=== PATIENT | male | born 1945 | race Caucasian/White ===

== ENCOUNTER → 2017-03-08 | Outpatient (CLI) | payer MEDICARE ==
--- NOTE | 2017-03-09 08:31 | REP ---
Clinical: Acute on chronic cough. Technique: PA and lateral. Comparison: 02/05/2015. Findings: Diffuse advanced chronic interstitial changes with fibrosis and scarring are again appreciated and similar to prior examination. Subtle superimposed perihilar and basilar atelectasis/infiltrate cannot be excluded. Visualized portions of the mediastinum and cardiac silhouette are relatively stable. No pneumothorax. No pleural effusion. Skeletal structures demonstrate osteopenia and degenerative changes along with old healed rib fractures. Impression: Chronic fibrosis and interstitial changes similar to prior examination. Subtle superimposed acute process cannot be excluded. If the patient remains symptomatic consider chest CT for further investigation. Signed by Garrett Miller MD 03/08/2017 06:09 P
== END ==
LOC: M WUC 17:48
PROVIDERS: ATTEND Family Medicine
DX: R05 Cough (principal)

== ENCOUNTER → 2017-03-09 | Outpatient (CLI) | payer MEDICARE ==
[2017-03-09 13:18] LABS: MEAN CORPUSCULAR HEMOGLOBIN 31.9 pg (27.0-33.0); MEAN CORPUSCULAR VOLUME 91.1 fl (80.0-96.0); RED CELL DISTRIBUTION WIDTH 13.1 % (11.5-14.5); WHITE BLOOD COUNT 12.8 K/mm3 (4.0-10.0)
[2017-03-09 13:22] LABS: INR 1.14
[2017-03-09 13:38] LABS: ALBUMIN 3.4 GM/DL (3.2-5.2); ALBUMIN/GLOBULIN RATIO 0.87 (1.00-1.93); ALKALINE PHOSPHATASE 92 U/L (45-117); ALT/SGPT 20 U/L (12-78); ANION GAP 9 MEQ/L (8-16); AST/SGOT 20 U/L (15-37); BILIRUBIN,TOTAL 0.7 MG/DL (0.2-1.0); BLOOD UREA NITROGEN 14 MG/DL (7-18); CALCIUM LEVEL 8.6 MG/DL (8.8-10.2); CARBON DIOXIDE LEVEL 25 MEQ/L (21-32); CHLORIDE LEVEL 105 MEQ/L (98-107); CHOLESTEROL LEVEL 139 MG/DL (<200); CREATININE FOR GFR 0.89 MG/DL (0.70-1.30); GLOMERULAR FILTRATION RATE > 60.0 (>42); GLUCOSE, FASTING 89 MG/DL (83-110); POTASSIUM SERUM 4.3 MEQ/L (3.5-5.1); SODIUM LEVEL 139 MEQ/L (136-145); TOTAL PROTEIN 7.3 GM/DL (6.4-8.2); TRIGLYCERIDES LEVEL 86 MG/DL (<150)
== END ==
LOC: M WUC 08:21
PROVIDERS: ATTEND Family Medicine
DX: I48.91 Unspecified atrial fibrillation (principal); I10 Essential (primary) hypertension

== ENCOUNTER → 2017-04-29 | Outpatient (CLI) | payer MEDICARE ==
[~2017-04-29] MED LIST: ALB2.5NEB INH; ALBU83IN INH; ALLO15TA PO; AMLO5TAB2 PO; BENZ100C5 PO; ELIQ5TAB PO; HYDR12.55 PO; HYDR25TA6; IPRASOL4 INH; IPRASOL4 NEB; ISOVUE-370 76% 100ML VIAL (Q9967) As Ordered ONE; METO1TAB87 PO; METO50TA7 PO; OMEP20CA3 PO; PRED50TA PO; PROAAER10 INH; ZOFR20TA PO; ZYLO300T4 PO; [UNRECOGNIZED DRUG - CODE] XX
--- NOTE | 2017-04-29 19:19 | REP ---
CT study of the chest with IV contrast: History: Shortness of breath and cough. CT contrast dose: 75 mL of Isovue [address] findings: Digital cow tender radiograph demonstrates pleural thickening along the right lateral chest wall and fullness in the right mediastinum and right hilus new from the chest x-ray of 03/08/2017. Chest CT images show multiple abnormalities. There is malignant-appearing adenopathy in the supraclavicular region of the right neck as well as in the right axilla. The largest node in the right axilla measures 2.5 cm in greatest diameter. A right supraclavicular lymph node is present measuring 2.8 cm, along with other smaller nodes. There is bulky mediastinal right hilar and left hilar lymphadenopathy. There is a confluent kay mass in the pretracheal region of the mediastinum measuring 5.6 x 5.6 cm. Subcarinal lymph node measures 4.2 x 6.8 cm. There are multiple pulmonary nodules bilaterally. There is an area of confluent opacity in the right lower lobe. Some of this may be postobstructive consolidation. Right lower lobe bronchial airways appear narrowed in this region. There are some interstitial lung changes as well as seen on previous radiographs. Numerous pulmonary nodules are seen. There is a enlarged lymph node in the epicardial fat to the left of midline 3.2 cm in greatest diameter. No adrenal lesion is seen. No hepatic lesion is observed. There are some mildly enlarged periesophageal lymph nodes above the diaphragmatic hiatus. There are one or two equivocal celiac axis lymph nodes in the upper abdomen. Bone window settings show no bony destructive lesion. 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 Histologic sampling is recommended. Ultrasound-guided right axillary lymph node needle biopsy should be for safe and feasible. Signed by Wallace Azevedo MD 04/29/2017 07:41 P
== END ==
LOC: M RAD 16:23
PROVIDERS: ATTEND Family Medicine
DX: R93.8 Abnormal findings on diagnostic imaging of other specified body structures (principal); R06.02 Shortness of breath; R05 Cough

== ENCOUNTER 2017-04-30 19:21 | Inpatient (IN) | payer MEDICARE ==
[~2017-04-30] VITALS: Ht 177.8 cm; Wt 95.3 kg
[2017-04-30] MEDS ORDERED: HYDR25TA6 (19:51)
[2017-04-30] MEDS ORDERED: PROAAER10 INH (19:51)
[2017-04-30] MEDS ORDERED: AMLO5TAB2 PO (19:51)
[2017-04-30] MEDS ORDERED: METO50TA7 PO (19:51)
[2017-04-30] MEDS ORDERED: BENZ100C5 PO (19:55)
[2017-04-30] MEDS ORDERED: ELIQ5TAB PO (19:55)
[2017-04-30] MEDS ORDERED: IPRATROPIUM 0.5MG/ALBUTEROL 2.5MG INH SOL UD 3ML (DUONEB)(J7620) NEB ONE (20:00)
[2017-04-30] MEDS ORDERED: METOPROLOL TART 50 MG TAB PO ONE (20:15)
[2017-04-30 20:31] LABS: BASO % 0.5 % (0.0-1.0); EOS # 0.2 K/mm3 (0.0-0.50); EOS % 1.8 % (0.0-3.0); LARGE UNSTAINED CELL # 0.5 K/mm3 (0.0-0.4); LARGE UNSTAINED CELL % 4.8 % (0.0-4.0); LYMPH # 1.6 K/mm3 (1.5-4.5); LYMPH % 11.3 % (24.0-44.0); MEAN CORPUSCULAR HEMOGLOBIN 30.1 pg (27.0-33.0); MEAN CORPUSCULAR HGB CONC 34.9 g/dl (32.0-36.5); MEAN CORPUSCULAR VOLUME 86.2 fl (80.0-96.0); MONO # 0.5 K/mm3 (0.0-0.8); MONO % 4.9 % (0.0-5.0); NEUTROPHILS # 7.7 K/mm3 (1.8-7.7); NEUTROPHILS % 76.7 % (36.0-66.0); PLATELET COUNT, AUTOMATED 280 k/mm3 (150-450); RED CELL DISTRIBUTION WIDTH 13.5 % (11.5-14.5)
[2017-04-30 20:53] LABS: ANION GAP 12 MEQ/L (8-16); BLOOD UREA NITROGEN 16 MG/DL (7-18); CALCIUM LEVEL 8.7 MG/DL (8.8-10.2); CARBON DIOXIDE LEVEL 26 MEQ/L (21-32); CHLORIDE LEVEL 104 MEQ/L (98-107); CREATININE FOR GFR 0.84 MG/DL (0.70-1.30); GLOMERULAR FILTRATION RATE > 60.0 (>42); GLUCOSE, FASTING 88 MG/DL (83-110); POTASSIUM SERUM 3.4 MEQ/L (3.5-5.1); SODIUM LEVEL 142 MEQ/L (136-145)
[2017-04-30] MEDS ORDERED: HYDR12.55 PO (20:56)
[2017-04-30] MEDS ORDERED: POTASSIUM CHLORIDE 10 MEQ SR TABLET PO ONE (21:30)
[2017-04-30] MEDS ORDERED: cefTRIAXone SOD 1 GM in D5W MINI-BAG PLUS 50 ML IV ONE (21:30)
[2017-04-30] MEDS ORDERED: AZITHROMYCIN INJ 500 MG, VIAL MATE ADAPTER 1 EACH in D5W 250 ML IV ONE (21:30)
[2017-04-30 23:00] VITALS: BP 160/99
[2017-04-30 23:02] LABS: ALBUMIN 2.5 GM/DL (3.2-5.2); ALBUMIN/GLOBULIN RATIO 0.61 (1.00-1.93); BILIRUBIN,DIRECT 0.2 MG/DL (0.0-0.2); BILIRUBIN,TOTAL 0.5 MG/DL (0.2-1.0); TOTAL PROTEIN 6.6 GM/DL (6.4-8.2)
[2017-04-30 23:09] LABS: INR 1.26
[2017-04-30] MEDS ORDERED: ACETAMINOPHEN TAB 650MG DOSE (2X325MG) PO PRN (23:15)
[2017-04-30] MEDS ORDERED: IPRATROPIUM 0.5MG/ALBUTEROL 2.5MG INH SOL UD 3ML (DUONEB)(J7620) NEB PRN (23:15)
[2017-04-30] MEDS ORDERED: NS 500 ML IV ONE (23:30)
[2017-04-30] MEDS: BENZONATATE 100 MG CAP PO SCH (23:59)
[2017-05-01 00:18] LABS: ABG HCO3 22.2 MEQ/L (22.0-26.0); ABG PARTIAL PRESSURE CO2 33.2 mmHg (35.0-45.0); ABG STANDARD HCO3 23.5 MEQ/L (22.0-26.0); ABG TOTAL CO2 23.3 MEQ/L (23.0-31.0); ABG pH (ARTERIAL) 7.444 UNITS (7.350-7.450)
[2017-05-01] MEDS: D5W/0.45% SODIUM CHLORIDE 1,000 ML IV SCH ×2 (00:25→18:03)
[2017-05-01] MEDS: ONDANSETRON 4MG/2ML VIAL (J2405) IV PRN ×2 (01:49→18:03)
[2017-05-01] MEDS ORDERED: ISOVUE-370 76% 100ML VIAL (Q9967) As Ordered ONE (02:38)
[2017-05-01] MEDS ORDERED: GASTROGRAFIN SOLUTION 30ML PO ONE (04:30)
[2017-05-01] MEDS ORDERED: GASTROGRAFIN SOLUTION 30ML (Q9963) PO ONE (05:00)
[2017-05-01 06:00] VITALS: BP 137/82
[2017-05-01 06:23] LABS: BASO # 0.1 K/mm3 (0.0-0.2); BASO % 0.6 % (0.0-1.0); EOS # 0.2 K/mm3 (0.0-0.50); EOS % 2.6 % (0.0-3.0); LARGE UNSTAINED CELL # 0.5 K/mm3 (0.0-0.4); LARGE UNSTAINED CELL % 4.9 % (0.0-4.0); LYMPH # 1.7 K/mm3 (1.5-4.5); LYMPH % 13.9 % (24.0-44.0); MEAN CORPUSCULAR HEMOGLOBIN 30.2 pg (27.0-33.0); MEAN CORPUSCULAR HGB CONC 34.6 g/dl (32.0-36.5); MEAN CORPUSCULAR VOLUME 87.4 fl (80.0-96.0); MONO # 0.6 K/mm3 (0.0-0.8); MONO % 6.5 % (0.0-5.0); NEUTROPHILS # 6.6 K/mm3 (1.8-7.7); NEUTROPHILS % 71.5 % (36.0-66.0); PLATELET COUNT, AUTOMATED 293 k/mm3 (150-450); RED CELL DISTRIBUTION WIDTH 13.6 % (11.5-14.5); WHITE BLOOD COUNT 9.3 K/mm3 (4.0-10.0)
[2017-05-01 06:30] LABS: ANION GAP 10 MEQ/L (8-16); BLOOD UREA NITROGEN 17 MG/DL (7-18); CALCIUM LEVEL 8.7 MG/DL (8.8-10.2); CARBON DIOXIDE LEVEL 27 MEQ/L (21-32); CHLORIDE LEVEL 103 MEQ/L (98-107); CREATININE FOR GFR 0.93 MG/DL (0.70-1.30); GLOMERULAR FILTRATION RATE > 60.0 (>42); GLUCOSE, FASTING 90 MG/DL (83-110); POTASSIUM SERUM 3.9 MEQ/L (3.5-5.1); SODIUM LEVEL 140 MEQ/L (136-145)
--- NOTE | 2017-05-01 06:59 | HPE ---
DATE OF ADMISSION: 04/30/2017 TIME: Patient was seen at 2200 PRIMARY CARE PROVIDER: Dr. Mena. BALLPOINT PEN CARTRIDGE TESTER: Dr. Hoang. CHIEF COMPLAINT: Shortness of breath and cough for several months. HISTORY OF PRESENT ILLNESS: 72-year-old male with a past medical history of tubulovillous adenoma in 2013 status post two colonoscopies, recent atrial fibrillation on Eliquis, hypertension, and recently placed on albuterol, presented with cough for at least 2 months and also shortness of breath for around 3 months. Patient has seen Dr. Mena about a month ago and was referred to Dr. Hoang with cardiology and it was found that he had a new onset of atrial fibrillation and was started on Eliquis 2 weeks ago. In addition, patient stated that he has been short of breath for the entire summer and for the 2 months he had a severe cough, produced sputum which was light yellow and he also currently has trouble walking to the car without getting shortness of breath. He is also sleeping with three pillows at night now on the sideway. However, he does not have any swellings in the lower extremities. CT scan was ordered by primary just recently and he had a CT done yesterday at around [address] chest showed compatible with extensive metastatic malignancy to the lungs, mediastinum, multiple intrathoracic and extrathoracic lymph node changes. Histological sampling is recommended. Ultrasound-guided right axilla lymph node needle biopsy should be safe and feasible. Otherwise, patient himself is very hard of hearing and according to patient's partner and friend in the room, stated that patient has a memory problem as well. However, patient himself denies any fever or chills. Denies any chest pain, any abdominal pains, nausea, vomiting, diarrhea, constipation. Denies any blood in the urine or stool. Denies any recent traveling or sick contact. ALLERGIES: Patient is allergic to ORANGE JUICE. HOME MEDICATIONS: Including: - amlodipine 5 mg by mouth daily - Eliquis 5 mg one tablet by mouth twice a day - benzonatate 100 mg one tablet by mouth three times a day - hydrochlorothiazide 12.5 mg one tablet by mouth daily - metoprolol tartrate 50 mg one tablet by mouth twice a day - albuterol sulfate two-puff inhalation every 4 hours as needed PAST MEDICAL HISTORY: Includin. Tubulovillous adenoma polyp in 2013 when he had a colonoscopy with Dr. Roth. 2. Hypertension. 3. Recently diagnosed atrial fibrillation on Eliquis. 4. Chronic pain. 5. Obesity. SURGICAL HISTORY: Includin. Repair of the right elbow. 2. Cataract removal. SOCIAL HISTORY: Patient quit smoking 30 years ago. Used to smoke two packs per day for 20 years. Denies any drinking or recreational drug use. Patient currently lives by himself; however, recently his girlfriend comes to visit him regularly due to he has not been feeling well. Patient also has children, who live close by. FAMILY HISTORY: Patient's father from cancer. Mother had cirrhosis of liver, also had hypertension. REVIEW OF SYSTEMS: GENERAL: Patient admits to 20-pound weight loss in the past 1 month. Stated that he does not want to eat. Denies any fever or chills; however, admits to night sweats, which were severe. Also denies any recent traveling or sick contact. HEENT: Denies any changes with vision, smell, hearing or taste. CARDIOVASCULAR: Admits to shortness of breath and atrial fibrillation, which seems to be a recent event. PULMONARY: Admits to shortness of breath for the entire summer and has been very weak also, was unable to walk far due to the shortness of breath and has been coughing, produces clear yellow sputum. GASTROINTESTINAL (GI): Denies any abdominal pains, nausea, vomiting, diarrhea, constipation, any blood in the stool. GENITOURINARY (): Denies any dysuria, burning on urination, any blood in the urine. MUSCULOSKELETAL: Denies any pain anywhere, any joint ache. HEMATOLOGY/ONCOLOGY: Patient admits to weight loss, 20 pounds. Admits to night sweats. Admits to poor oral intake. Admits to feeling weak and tired. However, denies any bleeding in the stool, denies any bleeding in the urine or any ease of bruising. ENDOCRINE: Denies any heat or cold intolerance. NEUROLOGICAL: Denies any weakness on any one side of his body. Denies any change of sensations. PSYCHIATRIC: Denies any anxiety, depression. PHYSICAL EXAMINATION: VITAL SIGNS: Temperature 97.5, pulse 123, respirations 24, blood pressure 158/92, oxygen was saturating at 87% on room air and while examined in the room patient was saturating at 92% on 2 liters of nasal cannula. GENERAL: Patient is a pleasant, however, very hard of hearing elderly male who was alert, awake, and oriented times three. Does not appear to be in distress lying comfortably in bed with head elevated at 30 degrees. HEENT: Normocephalic, atraumatic. Extraocular motor intact. Mucosa moist. NECK: Supple. Patient does have a right-sided supraclavicular node, which is at least 2 cm. CARDIOVASCULAR: Irregularly irregular, 2/6 systolic heart murmur. LUNGS: There was focal wheezing, especially on the left upper lung field anteriorly and there was slight wheezing in bilateral lung forbes posteriorly as well. ABDOMEN: Positive bowel sounds, soft, nontender, nondistended. No peritoneal signs. No ecchymosis. Patient is obese, however. No palpable masses. EXTREMITIES: No edema, clubbing, or cyanosis. SKIN: Warm and dry. NEUROLOGIC: Cranial nerves II-XII intact. No focal neurological deficit. LABORATORIES: WBC 10, hemoglobin 14.6, hematocrit 41.9 with a platelet count of 280, and MCV 86.2. Sodium 142, potassium was low 3.4, chloride 104, bicarbonate 28, anion gap of 12, BUN 16, creatinine 0.84, GFR greater than 60, fasting glucose 88, lactic acid is pending, calcium 8.7, magnesium 2, total bilirubin 0.5, direct bilirubin 0.2, AST 40, ALT 28, alkaline phosphatase 90, CK 54, CK-MB 1.3, troponin less than 0.02, BNP 63.1, total protein 6.6, albumin 2.5. PT 16.1, INR 1.26, PTT 32. Blood culture times two are pending. Patient had a portable chest x-ray today done in the emergency department shows bilateral lower lobe patchiness. The patient did have a CT of the chest done yesterday. As mentioned before, it shows compatible with extensive metastatic malignancy to the lungs, mediastinum, multiple intrathoracic and extrathoracic lymph node changes. Radiology recommended histological sampling, ultrasound-guided right axilla lymph node needle biopsy should be safe and feasible. ASSESSMENT AND PLAN: 72-year-old male with a past medical history of recently diagnosed atrial fibrillation, hypertension, obesity, and history of tubulovillous adenoma polyp from colonoscopy in 2013, presented with: 1. Shortness of breath. Likely related to malignancy, possibly with colonic primary metastasized to the lungs, shown on the CT done on 04/29/2017. Radiology recommended ultrasound-guided right axilla lymph node needle biopsy. Patient also has a palpable supraclavicular lymph node on the right side as well. Will likely discuss with pulmonary in the morning regarding best diagnostic etiology, possibly consult oncology inpatient versus outpatient. Will continue supplemental oxygen and patient's EKG shows atrial fibrillation, no ST-T wave abnormality. Cardiac marker has been negative. Therefore, shortness of breath most likely due to malignancy in the lung. 2. Atrial fibrillation on Eliquis. On examination, patient was still in atrial fibrillation. Will actually hold Eliquis for now due to possible procedure and will keep patient nothing by mouth overnight as well. 3. Hypertension. Continue patient on Norvasc 5 mg daily, hydrochlorothiazide 12.5 daily, as well as metoprolol 50 mg by mouth daily with hold parameters. Will hold if systolic blood pressure is less than 120 or if heart rate is less than 65. 4. Coughing. Likely secondary to lung masses. Continue Tessalon Perles. Will start patient on incentive spirometry as well to prevent pneumonia. Patient did receive some antibiotic in the emergency room with azithromycin and Rocephin. However, will not continue due to no actual fever. The CT did not show any possible infection. Blood culture, however, has been ordered. Will followup. 5. Deep venous thrombosis (DVT) prophylaxis with sequential compression devices (SCDs) and thromboembolism deterrent stockings (TEDS) only due to possible procedure. 6. Fluid, electrolyte and diet. Will place the patient on 2-gram salt diet for now and will keep patient nothing by mouth in the morning for possible procedure. DISPOSITION: Patient has all of these symptoms and also CT finding, as well as supraclavicular lymph node on the right side, as well as the lymph node on the axilla region on the right side, likely needs a needle biopsy; however, will discuss with pulmonary in the morning regarding best diagnostic modality and possibly needs oncology consult inpatient or outpatient. Will followup with cultures. Has not discussed code status yet due to this is a new event for the patient. Patient will be seen by attending doctor, Dr. Martinez in the morning. Patient has been discussed with attending doctor, Dr. Mccartney. My preceptor for this patient encounter was Dr. Redd Mccartney. The preceptor was physically present in the building during the encounter and was fully available as needed. All aspects of the patient interview, examination, medical decision making process, and medical care plan development were reviewed and approved by the preceptor. The preceptor is aware and concurs with the plan as stated in the body of this note and will attest to such by his/her co-signature.
--- NOTE | 2017-05-01 07:00 | REPUSA ---
CLINICAL HISTORY: Abdominal pain. TECHNIQUE: Multiple axial, sagittal and coronal CT images were obtained through the abdomen and pelvi s after administration of oral and intravenous contrast material. COMMENTS: Small sliding hiatal hernia. Interposition of the colon between the liver and the right hemidiaphragm. 4.1x3.7 cm heterogeneous soft tissue nodule in the right upper lobe. 1.6 cm left renal simple cyst. Uncomplicated colonic diverticulosis. The liver is of uniform attenuation without mass or defect. There is no intra or extrahepatic biliary ductal dilatation. The spleen is normal. The gallbladder is within normal limits. The pancreas is of normal contour and attenuation characteristics. There is no evidence of adrenal mass. Both kidneys demonstrate prompt and equal nephrograms. The kidneys are normal in size, shape and conf iguration. There is no evidence of renal or ureteral mass. No renal or ureteral calculi are identifie d. There is no hydroureter or hydronephrosis. No evidence for appendicitis. There is no bowel wall thickening. No evidence for small or large da l obstruction. There is no evidence of abdominal ascites or lymphadenopathy. There is no evidence of intrinsic or extrinsic bladder mass. There is no pelvic ascites or lymphadeno silvana. Enlarged right hilar and mediastinal lymph nodes. The largest measures 4.2 cm. Heterogeneous nodular right perihilar soft tissue thickening suggestive of a neoplastic pathology. Associated loss of volume in the right lung more prominent in the right lower lobe. Multiple bilateral basilar pulmonary nodules with the largest measuring 2.2 cm. Mild mediastinal shift to the left side. Moderate right pleural effusion. Passive atelectatic airspace disease of the right lower lobe. Enlarged right paracardiac lymph nodes the largest measuring 1.6 cm. The bony structures are free of lytic or blastic lesions. Multilevel degenerative changes are seen in volving the thoracolumbar spine. Scattered calcifications are seen involving the aorta and major bran ches compatible with atherosclerosis. IMPRESSION: Bilateral basilar pulmonary nodules. Right pleural effusion. Right hilar mass. Right hilar/mediastinal lymphadenopathy. Loss of volume in the right lung with mild mediastinal shift to the left side. Metastatic soft tissue mass in the right upper quadrant. Thank you for your kind referral of this patient.
--- NOTE | 2017-05-01 08:54 | REP ---
Chest x-ray: Two views. History: Dyspnea and cough. Comparison chest x-ray 03/08/2017. There is an chest CT study is from 04/29/2017. Findings: There is marked mediastinal widening on the right and the left consistent with bulky mediastinal lymphadenopathy. There are multiple nodular opacities in the lung forbes and diffuse interstitial lung disease is seen. Fissural thickening is seen on the lateral radiograph. There is blunting of what appears to be the right posterior pleural angle. Heart appears to be enlarged. Impression: Extensive mediastinal and hilar adenopathy pattern. Right pleural effusion and multiple bilateral pulmonary nodules. Diffuse interstitial lung disease. Signed by Wallace Azevedo MD 05/01/2017 09:49 A
[2017-05-01] MEDS: SENOKOT S TAB PO SCH ×3 (09:00→20:47)
[2017-05-01] MEDS: amLODIPine 5 MG TAB PO SCH (09:00)
[2017-05-01] MEDS ORDERED: APIXABAN 5 MG TAB (ELIQUIS) PO SCH (09:00)
[2017-05-01] MEDS: hydroCHLOROthiazide 12.5 MG CAPSULE PO SCH (09:12)
[2017-05-01] MEDS: BENZONATATE 100 MG CAP PO SCH ×3 (09:12→20:54)
[2017-05-01] MEDS: METOPROLOL TART 50 MG TAB PO SCH ×2 (09:12→20:47)
[2017-05-01 13:06] VITALS: BP 137/72
--- NOTE | 2017-05-01 16:05 | IPNPDOC ---
Text Note Date of Service The patient was seen on 05/01/17. NOTE Subjective: Patient is a 72 year old male with a PMHx of Atrial fibrillation (Dx 2 weeks prior, started on Eliquis), Tubulovillous adenoma (s/p resection, found on Colonoscopy 2013), HTN, Chronic pain and Obesity who presented to the ER with shortness of breath and cough progressively worsening over several months. Patient had imaging as outpatient that revealed diffuse metastatic lesions in both lung forbes. Upon arrival in the ER he was found to have hypoxia and was admitted for further workup. Patient was seen and examined at the bedside. Objective: Vitals (See below) General: Lying in bed, no acute distress, comfortable, AAOx3 HEENT: NC, AT CVS: IrIr, +S1S2, + Systolic murmur Lungs: Poor inspiratory effort; no appreciable crackles / wheezing Abdomen: Soft, ND, NT Extremities: - Edema, - Calf tenderness Assessment and plan: Dyspnea - likely 2/2 extensive metastatic lesions at bilateral lung forbes - primary lesion unclear - Presented to the ER with SOB and cough - Physical with poor inspiratory effort; enlarged LN at right supraclavicular / right axilla - Requiring supplemental oxygen via nasal cannula - No leukocytosis noted - Blood cultures 04/30: Pending - CT Chest w/ IV Contrast 04/29: extensive metastatic malignancy to the lungs, mediastinum, and multiple intrathoracic and extrathoracic lymph node chains. - s/p Antibiotics in ER (Azithromycin and Ceftriaxone) - c/w Symptomatic control with Tessalon Perles and Duoneb PRN - Plan for IR guided LN biopsy should be for safe and feasible - Will make NPO post-midnight Lactic acidosis - likely 2/2 SOB - No evidence of infection - Hemodynamically stable Atrial fibrillation - EKG with atrial fibrillation - c/w rate control with metoprolol tartrate 50 BID (from outpatient) - Eliquis on hold Tubulovillous adenoma - s/p resection, found on Colonoscopy 2013 - Reported to have Colonoscopy repeated in 2014 - as per patient has been normal HTN - c/w HCTZ, Amlodipine and Metoprolol with holding parameters Chronic pain - c/w Tylenol PRN Obesity DVT prophylaxis - c/w SCDs VS,Fishbone, I+O VS, Fishbone, I+O Laboratory Tests 04/30/17 20:24 Red Blood Count 4.86, Mean Corpuscular Volume 86.2, Mean Corpuscular Hemoglobin 30.1, Mean Corpuscular Hemoglobin Concent 34.9, Red Cell Distribution Width 13.5 , Neutrophils (%) (Auto) 76.7 H, Lymphocytes (%) (Auto) 11.3 L, Monocytes (%) ( Auto) 4.9, Eosinophils (%) (Auto) 1.8, Basophils (%) (Auto) 0.5, Neutrophils # ( Auto) 7.7, Lymphocytes # (Auto) 1.6, Monocytes # (Auto) 0.5, Eosinophils # (Auto ) 0.2, Basophils # (Auto) 0.0, Calcium Level 8.7 L, Total Creatine Kinase 54 05/01/17 05:30 Red Blood Count 4.67, Mean Corpuscular Volume 87.4, Mean Corpuscular Hemoglobin 30.2, Mean Corpuscular Hemoglobin Concent 34.6, Red Cell Distribution Width 13.6 , Neutrophils (%) (Auto) 71.5 H, Lymphocytes (%) (Auto) 13.9 L, Monocytes (%) ( Auto) 6.5 H, Eosinophils (%) (Auto) 2.6, Basophils (%) (Auto) 0.6, Neutrophils # (Auto) 6.6, Lymphocytes # (Auto) 1.7, Monocytes # (Auto) 0.6, Eosinophils # ( Auto) 0.2, Basophils # (Auto) 0.1, Calcium Level 8.7 L Vital Signs Date Time Temp Pulse Resp B/P (MAP) Pulse Ox O2 Delivery O2 Flow Rate FiO2 05/01/17 13:06 98.3 85 22 137/72 (93) 95 Nasal Cannula 3.0 I&O- Last 24 Hours up to 6 AM 05/01/17 06:00 Intake Total 0 ml Output Total 100 ml Balance -100 ml GUILLERMINA TAPIA MD May 01, 2017 16:04
[2017-05-01] MEDS ORDERED: DEXTROMETHORPHAN 60MG/10ML SUSP 90ML BTL(DELSYM) PO PRN (18:15)
[2017-05-01] MEDS ORDERED: guaiFENesin DM LIQ 10ML UD PO PRN (18:45)
[2017-05-01] MEDS ORDERED: traZODone 25MG PER 1/2 TABLET PO ONE (21:00)
--- NOTE | 2017-05-01 21:33 | ECGEPIP ---
Stationary ECG Study [facility] - ED Test Date: 2017-04-30 Pat Name: FRITZ MARTINEZ Department: Room: [place] [address] Gender: M Client Relationship Executive: MendezB: 1945 Requested By: TRUPTI Perez Order Number: [id number] Reading MD: Antonieta Santo Measurements Intervals [place] Rate: 104 P: RI: 0 QRS: 32 QRSD: 85 T: 24 QT: 328 QTc: 432 Interpretive Statements ATRIAL FIBRILLATION WITH RAPID VENTRICULAR RESPONSE MINIMAL ST DEPRESSION ABNORMAL RHYTHM ECG NO PRIOR FOR COMPARISON Electronically Signed On 05-01-2017 21:32:40 EDT by Antonieta Santo
[2017-05-01 22:00] VITALS: BP 130/85
[2017-05-02 05:30] VITALS: BP 143/87
[2017-05-02 06:29] LABS: BASO # 0.1 K/mm3 (0.0-0.2); BASO % 0.6 % (0.0-1.0); EOS # 0.3 K/mm3 (0.0-0.50); EOS % 3.4 % (0.0-3.0); LARGE UNSTAINED CELL # 0.6 K/mm3 (0.0-0.4); LARGE UNSTAINED CELL % 5.6 % (0.0-4.0); LYMPH # 1.8 K/mm3 (1.5-4.5); LYMPH % 12.6 % (24.0-44.0); MEAN CORPUSCULAR HEMOGLOBIN 30.2 pg (27.0-33.0); MEAN CORPUSCULAR HGB CONC 34.3 g/dl (32.0-36.5); MEAN CORPUSCULAR VOLUME 88.1 fl (80.0-96.0); MONO # 0.5 K/mm3 (0.0-0.8); MONO % 5.4 % (0.0-5.0); NEUTROPHILS # 7.3 K/mm3 (1.8-7.7); NEUTROPHILS % 72.4 % (36.0-66.0); PLATELET COUNT, AUTOMATED 272 k/mm3 (150-450); RED CELL DISTRIBUTION WIDTH 13.7 % (11.5-14.5)
[2017-05-02 06:35] LABS: INR 1.12
[2017-05-02 06:50] LABS: ANION GAP 9 MEQ/L (8-16); BLOOD UREA NITROGEN 12 MG/DL (7-18); CALCIUM LEVEL 8.8 MG/DL (8.8-10.2); CARBON DIOXIDE LEVEL 28 MEQ/L (21-32); CHLORIDE LEVEL 104 MEQ/L (98-107); GLOMERULAR FILTRATION RATE > 60.0 (>42); GLUCOSE, FASTING 86 MG/DL (83-110); POTASSIUM SERUM 3.7 MEQ/L (3.5-5.1); SODIUM LEVEL 141 MEQ/L (136-145)
[2017-05-02] MEDS: hydroCHLOROthiazide 12.5 MG CAPSULE PO SCH (09:51)
[2017-05-02] MEDS: METOPROLOL TART 50 MG TAB PO SCH (09:51)
[2017-05-02 09:52] VITALS: BP 143/87
[2017-05-02] MEDS: SENOKOT S TAB PO SCH (09:52)
[2017-05-02] MEDS: amLODIPine 5 MG TAB PO SCH (09:52)
[2017-05-02] MEDS: BENZONATATE 100 MG CAP PO SCH ×2 (09:52→15:40)
--- NOTE | 2017-05-02 13:33 | DS.PDOC ---
Discharge Summary General Date of Admission Apr 30, 2017 at 21:25 Date of Discharge 05/02/2017 Discharge Summary PROCEDURES PERFORMED DURING STAY: IR guided LN biopsy 05/02/2017 ADMITTING DIAGNOSES / DISCHARGE DIAGNOSES: Dyspnea - likely 2/2 extensive metastatic lesions at bilateral lung forbes - primary lesion unclear; likely lung primary Lactic acidosis - likely 2/2 SOB COMPLICATIONS/CHIEF COMPLAINT: Lung Mass. HISTORY OF PRESENT ILLNESS: Patient is a 72 year old male with a PMHx of Atrial fibrillation (Dx 2 weeks prior, started on Eliquis), Tubulovillous adenoma (s/p resection, found on Colonoscopy 2013), HTN, Chronic pain and Obesity who presented to the ER with shortness of breath and cough progressively worsening over several months. Patient had imaging as outpatient that revealed diffuse metastatic lesions in both lung forbes. Upon arrival in the ER he was found to have hypoxia and was admitted for further workup. Patient was seen and examined at the bedside. He reports that is breathing is a little better with oxygen. He notes that his cough has had a slight improvement , but continues to be present. Denies any sputum production, chills or fevers. HOSPITAL COURSE: Dyspnea - likely 2/2 extensive metastatic lesions at bilateral lung forbes - primary lesion unclear; likely lung primary - Presented to the ER with SOB and cough - Physical with poor inspiratory effort; enlarged LN at right supraclavicular / right axilla - Requiring supplemental oxygen via nasal cannula - No leukocytosis noted - Blood cultures 04/30: Pending - CT Chest w/ IV Contrast 04/29: extensive metastatic malignancy to the lungs, mediastinum, and multiple intrathoracic and extrathoracic lymph node chains - CT abdomen / pelvis 05/01: bilateral basilar pulmonary nodules, R pleural effusion, R hilar mass, right hilar / mediastinal lymphadenomata, metastatic soft tissue mass in RUQ - s/p Antibiotics in ER (Azithromycin and Ceftriaxone) - c/w Symptomatic control with Tessalon Perles and Duoneb PRN - Will go for IR guided biopsy of LN for tissue diagnosis - Case discussed with Oncology (Dr. Frias); plan for outpatient follow up to go over results of pathology and additional workup Lactic acidosis - likely 2/2 SOB - No evidence of infection - Hemodynamically stable Atrial fibrillation - EKG with atrial fibrillation - c/w rate control with metoprolol tartrate 50 BID (from outpatient) - Eliquis on hold; will restart Eliquis after procedure Tubulovillous adenoma - s/p resection, found on Colonoscopy 2013 - Reported to have Colonoscopy repeated in 2014 - as per patient has been normal HTN - c/w HCTZ, Amlodipine and Metoprolol with holding parameters Chronic pain - c/w Tylenol PRN Obesity DVT prophylaxis - c/w SCDs DISCHARGE MEDICATIONS: Please see below. ALLERGIES: Please see below. LABORATORY DATA: Please see below. DISCHARGE PLAN: Patient has been advised to follow up with primary care provider and oncology within 7 days. He has been advised to call to confirm / schedule appointment. Case has been discussed with Oncology and referral to oncology has been given. Advised patient to remain compliant with treatment plan and medications and return to the ER if they experience any problems. DISPOSITION: . DISCHARGE INSTRUCTIONS: Patient has been advised to follow up with primary care provider and oncology within 7 days. He has been advised to call to confirm / schedule appointment. Case has been discussed with Oncology and referral to oncology has been given. Advised patient to remain compliant with treatment plan and medications and return to the ER if they experience any problems. ITEMS TO FOLLOWUP ON ON OUTPATIENT: Pathology results with Oncology DISCHARGE CONDITION: Stable TIME SPENT ON DISCHARGE: Greater than 35 minutes Vital Signs/I&Os Vital Signs Date Time Temp Pulse Resp B/P (MAP) Pulse Ox O2 Delivery O2 Flow Rate FiO2 05/02/17 09:52 112 143/87 05/02/17 09:00 Nasal Cannula 3.0 05/02/17 05:30 97.9 30 93 I&O- Last 24 Hours up to 6 AM 05/02/17 06:00 Intake Total 1200 ml Output Total 560 ml Balance 640 ml Laboratory Data Labs 24H Laboratory Tests 2 05/02/17 05:55: White Blood Count 10.0, Red Blood Count 4.65, Hemoglobin 14.0, Hematocrit 41.0L , Mean Corpuscular Volume 88.1, Mean Corpuscular Hemoglobin 30.2, Mean Corpuscular Hemoglobin Concent 34.3, Red Cell Distribution Width 13.7, Platelet Count 272, Neutrophils (%) (Auto) 72.4H, Lymphocytes (%) (Auto) 12.6L, Monocytes (%) (Auto) 5.4H, Eosinophils (%) (Auto) 3.4H, Basophils (%) (Auto) 0.6 , Neutrophils # (Auto) 7.3, Lymphocytes # (Auto) 1.8, Monocytes # (Auto) 0.5, Eosinophils # (Auto) 0.3, Basophils # (Auto) 0.1, Large Unclassified Cells % 5.6H, Large Unclassified Cells # 0.6H, Prothrombin Time 14.6H, Prothromb Time International Ratio 1.12, Activated Partial Thromboplast Time 29.6, Anion Gap 9 , Glomerular Filtration Rate > 60.0, Blood Urea Nitrogen 12, Creatinine 0.80, Sodium Level 141, Potassium Level 3.7, Chloride Level 104, Carbon Dioxide Level 28, Calcium Level 8.8 CBC/BMP Laboratory Tests 05/02/17 05:55 Red Blood Count 4.65, Mean Corpuscular Volume 88.1, Mean Corpuscular Hemoglobin 30.2, Mean Corpuscular Hemoglobin Concent 34.3, Red Cell Distribution Width 13.7 , Neutrophils (%) (Auto) 72.4 H, Lymphocytes (%) (Auto) 12.6 L, Monocytes (%) ( Auto) 5.4 H, Eosinophils (%) (Auto) 3.4 H, Basophils (%) (Auto) 0.6, Neutrophils # (Auto) 7.3, Lymphocytes # (Auto) 1.8, Monocytes # (Auto) 0.5, Eosinophils # (Auto) 0.3, Basophils # (Auto) 0.1, Calcium Level 8.8 Microbiology Microbiology 04/30/17 Blood Culture - Preliminary, Resulted No growth after 24 hours . All specim... 04/30/17 Blood Culture - Preliminary, Resulted No growth after 24 hours . All specim... 05/01/17 MRSA Screen - Final, Complete 05/01/17 Influenza Virus Type A Antigen - Final, Complete 05/01/17 Influenza Virus Type B Antigen - Final, Complete 05/01/17 Gram Stain - Final, Resulted 05/01/17 Sputum Culture, Resulted Pending Discharge Medications Scheduled Amlodipine Besylate (Amlodipine Besylate) 5 Mg Tab, 5 MG PO DAILY, (Reported) Apixaban Base (Eliquis) 5 Mg Tab, 5 MG PO BID, (Reported) Benzonatate (Benzonatate) 100 Mg Cap, 100 MG PO TID, (Reported) Hydrochlorothiazide (Hydrochlorothiazide) 12.5 Mg Tab, 12.5 MG PO DAILY, ( Reported) Metoprolol Tartrate (Metoprolol Tartrate) 50 Mg Tab, 50 MG PO BID, (Reported) Scheduled PRN Albuterol Sulfate (Proair Hfa) 108 Mcg/Act Aer, 2 PUFF INH Q4H PRN for SHORTNESS OF BREATH, (Reported) Allergies Coded Allergies: [place] (Unverified Allergy, Unknown, 05/01/17) ORANGE DYE [place] Oil (Unverified Allergy, Unknown, 05/01/17) GUILLERMINA TAPIA MD May 02, 2017 13:33
[2017-05-02] MEDS ORDERED: ELIQ5TAB PO (13:35)
[2017-05-02 14:00] VITALS: BP 138/76
[2017-05-02] MEDS ORDERED: LIDOCAINE 1% MDV 20ML VIAL As Ordered ONE (16:31)
[2017-05-02] MEDS ORDERED: PROAAER10 INH (18:07)
--- NOTE | 2017-05-02 20:57 | REP ---
ULTRASOUND GUIDED RIGHT AXILLARY LYMPH NODE FINE NEEDLE ASPIRATION: The procedure was performed by NICOLE Velásquez under the direct supervision of Dr. Mac. The procedure along with its risks, benefits, and complications were discussed with the patient prior to the procedure. Informed consent was obtained both verbally and written. The patient was identified in the ultrasound suite and placed on his left hand side. The right axillary region was interrogated with ultrasound. The lymph node of interest was localized. An appropriate site was chosen for needle entry and this area was marked, prepped and draped in the usual sterile fashion. A procedural "time out" was performed to ensure that the correct patient, site and procedure were being performed. Local infiltrative anesthesia was achieved using 1% Xylocaine. Six 25-gauge needles were passed through the lymph node for fine-needle aspiration. These were documented with ultrasound imaging for each pass. Six samples total were taken. Three of these samples were placed in Formalin. Three samples were placed in RPMI. These are sent to the lab for further evaluation. Results are pending. Post-procedural imaging revealed no immediate complications. The patient tolerated the procedure well and was discharged back to the floor. Reviewed by NICOLE Le 05/03/2017 08:37 AEdited and Signed by Reyes Mac MD 05/03/2017 04:36 P
--- NOTE | 2017-05-08 15:29 | CR ---
ERROR this is a duplicate note and SHOULD BE DELETED DATE OF CONSULTATION: 05/07/2017 [place]
== END 2017-05-02 18:15 | disposition home or self-care (01) | DRG 824 ==
LOC: M ED 19:21 → M ED INP 21:25 → M MSPAV 23:10
PROVIDERS: ADMIT Internal Medicine; ATTEND Internal Medicine
PROC: 07B53ZX Excision of Right Axillary Lymphatic, Percutaneous Approach, Diagnostic (ICD-10-PCS; principal; 2017-05-02)
DX: C85.14 Unspecified B-cell lymphoma, lymph nodes of axilla and upper limb (principal); E87.2 Acidosis; R06.02 Shortness of breath; R05 Cough; R91.8 Other nonspecific abnormal finding of lung field; I48.91 Unspecified atrial fibrillation; E66.9 Obesity, unspecified; I10 Essential (primary) hypertension; G89.29 Other chronic pain; Z79.899 Other long term (current) drug therapy; Z88.8 Allergy status to other drugs, medicaments and biological substances; Z87.891 Personal history of nicotine dependence

== ENCOUNTER 2017-05-06 07:30 | Inpatient (IN) | payer MEDICARE ==
[~2017-05-06 07:30] MED LIST changes: -ALB2.5NEB INH; -ALBU83IN INH; -ALLO15TA PO; -IPRASOL4 INH; -IPRASOL4 NEB; -ISOVUE-370 76% 100ML VIAL (Q9967) As Ordered ONE; -METO1TAB87 PO; -OMEP20CA3 PO; -PRED50TA PO; -ZOFR20TA PO; -ZYLO300T4 PO; -[UNRECOGNIZED DRUG - CODE] XX
[2017-05-06] MEDS ORDERED: LR 1,000 ML IV ONE (16:00)
--- NOTE | 2017-05-06 16:29 | REP ---
Portable chest x-ray: Sitting AP view. History: Tachypnea. Comparison chest x-ray 04/30/2017. Comparison chest CT study is from 04/29/2017. Findings: Cardiomegaly right and left-sided mediastinal widening and multiple pulmonary nodules are again seen. Today's views exposed at a somewhat lesser level of inspiration. There appears to be increased opacity in the right and left lower lung forbes. Evidence of small right pleural effusion again noted. Impression: Lesser level of inspiration, increased pulmonary opacification in the lung forbes bilaterally. Bilateral mediastinal widening and hilar fullness. Signed by Wallace Azevedo MD 05/06/2017 05:02 P
[2017-05-06] MEDS ORDERED: ALBUTEROL SULFATE 2.5 MG/0.5 ML INH NEB SOLN As Ordered ONE (19:16)
[2017-05-06] MEDS ORDERED: BUPIVACAINE/EPIN 0.5% 30 ML VIAL As Ordered ONE (19:43)
[2017-05-06] MEDS ORDERED: ALBUTEROL SULFATE 2.5 MG/0.5 ML INH NEB SOLN INH SCH (19:45)
[2017-05-06] MEDS ORDERED: PROPOFOL 200 MG/20 ML VIAL As Ordered ONE (20:37)
[2017-05-06] MEDS ORDERED: ESMOLOL INJ 100MG/10ML VIAL As Ordered ONE (20:37)
[2017-05-06] MEDS ORDERED: LIDOCAINE 2% INJ 100 MG/5 ML SDV (FOR ANES.) As Ordered ONE (20:37)
[2017-05-06] MEDS ORDERED: MIDAZOLAM INJ 2 MG/2 ML VIAL (J2250) As Ordered ONE (20:39)
[2017-05-06] MEDS ORDERED: fentaNYL 100 MCG/2 ML INJECTION (J3010) As Ordered ONE (20:39)
[2017-05-06] MEDS ORDERED: METOPROLOL 5 MG/5 ML VIAL As Ordered ONE (21:45)
[2017-05-06] MEDS ORDERED: HEPARIN SOD (PORCINE) 5000 UNITS/ML VIAL SC SCH (22:00)
[2017-05-06] MEDS ORDERED: LR 1,000 ML IV SCH (22:00)
[2017-05-06] MEDS ORDERED: NORCO, ANEXSIA 5/325MG TABLET (HYDROcodone/ACETAMINOPHEN) PO PRN (22:00)
[2017-05-06] MEDS ORDERED: ONDANSETRON 4MG/2ML VIAL (J2405) IV PRN ×2 (22:00)
[2017-05-06] MEDS ORDERED: ALBUTEROL 90 MCG/ACT 8GM HFA INHALER INH PRN (22:00)
[2017-05-06] MEDS ORDERED: PERCOCET 5MG/325MG TAB PO PRN (22:00)
[2017-05-06] MEDS ORDERED: ACETAMINOPHEN TAB 650MG DOSE (2X325MG) PO PRN (22:00)
[2017-05-06] MEDS ORDERED: KETOROLAC 30 MG/ML VIAL (J1885) IV PRN (22:00)
[2017-05-06] MEDS ORDERED: METOPROLOL TART 50 MG TAB As Ordered ONE (22:10)
[2017-05-06 22:31] LABS: ABG BASE EXCESS -4.1 (-2.0-2.0); ABG HCO3 19.9 MEQ/L (22.0-26.0); ABG PARTIAL PRESSURE CO2 33.5 mmHg (35.0-45.0); ABG PARTIAL PRESSURE O2 65.6 mmHg (75.0-100.0); ABG TOTAL CO2 20.9 MEQ/L (23.0-31.0); ABG pH (ARTERIAL) 7.392 UNITS (7.350-7.450)
[2017-05-06 23:05] VITALS: BP 149/78
--- NOTE | 2017-05-06 23:32 | CR ---
DATE OF CONSULTATION: 05/06/2017 REASON FOR CONSULT: Shortness of breath. CONSULT FOR: Dr. Nielsen, General Surgery HISTORY OF THE PRESENT ILLNESS: The patient is a 72-year-old man who was newly diagnosed with atrial fibrillation with rapid ventricular response within the last 2 months and has been seen by Dr. Hoang. He has been started on Eliquis and metoprolol. Shortly thereafter, the patient continued to have shortness of breath and cough, which prompted him to present to the emergency room earlier this month where he was found to have newly widely metastatic disease. He did undergo a fine-needle biopsy, diagnosed with B-cell lymphoma. He has been following with Dr. Moriah Clark in the outpatient setting since then. However, biopsy results did not have appropriate markers. Unfortunately, the patient was unable to be started on chemotherapy. The patient has fairly widely metastatic lymph nodes. An outpatient biopsy was scheduled with Dr. Nielsen today. Dr. Nielsen completed the biopsy and following the procedure, he found the patient to be quite hypoxic. The patient has been started on two liters of oxygen over the last two months. However, at this time, he is requiring four liters. He is in persistent atrial fibrillation; however, his rate is a rapid ventricular response at the present time in the 120s. As such, Dr. Nielsen feels as though the patient is not well enough to return home this evening following the procedure. At the present time, the patient tells me that he does feel exhausted. He denies palpitations, chest pressure. He tells me that he does not feel anymore short of breath than usual. He denies lightheadedness, dizziness, nausea, vomiting, fevers or chills. PAST MEDICAL HISTORY: B-cell lymphoma with a CT scan earlier this month revealing extensive metastatic malignancy to the lungs, mediastinum, multiple intrathoracic and extrathoracic lymph node chains. Obesity. Hypertension. New onset atrial fibrillation within the last month. Chronic pain. ALLERGIES: ORANGE JUICE. SURGICAL HISTORY: Right axillary lymph node biopsy completed today. "Right elbow surgery." Cataract extraction. HOME MEDICATIONS: - ProAir HFA two puffs inhaled every 4 hours as needed shortness of breath - Norvasc 5 mg daily - Eliquis 5 mg twice a day - benzonatate 100 mg by mouth three times a day - hydrochlorothiazide 12.5 mg daily - metoprolol tartrate 50 mg by mouth twice a day SOCIAL HISTORY: The patient is a former smoker. He lives alone. He has a 40- pack-year history. He is accompanied by his children. He has a girlfriend who lives nearby him as well. Primary care provider (PCP): Dr. Mena. Front Man: Dr. Hoang. Oncologist: Dr. Moriah Clark. Surgeon: Dr. Nielsen FAMILY HISTORY: Noncontributory. REVIEW OF SYSTEMS:10-point review of systems completed. Negative other than in the history of the present illness (HPI). OBJECTIVE: VITAL SIGNS: Temperature 98.1, pulse 120, along with atrial fibrillation on the monitor while I am examining the patient. Respiratory rate 22. Blood pressure 120/70. Oxygen saturation is 90% on four liters nasal cannula. GENERAL: He is an elderly obese man leaning forward. He does appear to be mildly dyspneic, but in no acute distress. He is able to speak in complete sentences. HEENT: Cranial nerves II-XII are grossly intact. He has moist mucous membranes. There is cervical lymphadenopathy. CARDIOVASCULAR EXAM: S1, S2, irregularly irregular, tachycardic. RESPIRATORY EXAM: Scattered wheezes and rales throughout with diminished breath sounds throughout. ABDOMINAL EXAM: Grossly obese. EXTREMITIES: There is 1 to 2+ edema bilaterally. LABORATORY STUDIES: No recent labs since his discharge on 05/02/2017. ASSESSMENT AND PLAN: This is a 72-year-old man with early diffusely metastatic B-cell lymphoma. Problems: 1. Rapidly progressing metastatic B-cell lymphoma. The patient was admitted 04/30/2017 to 05/02/2017. At this time, he has been scheduled for an axillary lymph node biopsy in order to obtain more definitive tumor markers to direct chemotherapy. However, following the procedure, he has worsening hypoxia and atrial fibrillation with rapid ventricular response. I suspect that his worsening hypoxia is related to his malignancy. I have spoken with Dr. Moriah Clark who has suggested initiating the patient on 1 mg/kg prednisone by mouth. The patient is also being started on a proton pump inhibitor (PPI). Given that this dosing is chemotherapy dosing of steroids, the patient is also being started on allopurinol, and we will check baseline tumor lysis syndrome labs, including uric acid, lactic acid and electrolytes at this time as well as check in the morning. I have spoken with Dr. Day [place] this evening, and she has agreed to see the patient in consultation tomorrow as well. I will also check a stat arterial blood gas as well as CBC and BMP. The patient's hypoxia may also be related to some element of pulmonary edema. He is certainly fluid overloaded and has been in atrial fibrillation with a rapid ventricular response. I will get his echo report from Dr. Hoang. For the time being, we will see if we can improve his respiratory status with steroids and oxygen and rest. If, however, he plateaus and is not able to improve, would consider intravenous (IV) Lasix. I did have a lengthy discussion with this patient regarding his fairly rapidly progressing widely metastatic malignancy. I did discuss code status with him. He is leaning towards do not intubate (DNI) and do not resuscitate (DNR),but has not decided at this point. He told me he would like to discuss the matter first with his children, which I have encouraged him to do. I did express to him that his malignancy is quite significant, and there is certainly a chance he could succumb to his condition. 2. Atrial fibrillation with rapid ventricular response. The patient has been reordered for his Eliquis by Dr. Nielsen already. I will continue his home metoprolol, giving him his first dose now. He may require further titrations and recommend that he be admitted to the progressive care unit. 3. Hypertension. We will be titrating up his metoprolol, I suspect, and, thus, for the time being, I will hold his Norvasc and hydrochlorothiazide and reinitiate as needed. 4. Obesity. Complicating care. 5. Chronic pain. He has been ordered for pain medication by Dr. Nielsen already. 6. Deep vein thrombosis (DVT) prophylaxis. He is on Eliquis. DISPOSITION: The patient is admitted to the progressive care unit under Dr. Nielsen's service. I recommend that physical therapy see him, his intake and output are monitored, tumor lysis labs are monitored. We will obtain his echocardiogram report from Dr. Hoang. Followup further recommendations from oncology as they become available tomorrow. The patient's prognosis would appear to be guarded at best at this time. The patient will be signed out to Dr. Toscano who will continue following the patient at 7:00 a.m. Thank you for involving us in this interesting patient's care. Please do not hesitate to call us with any questions. [place]
[2017-05-06 23:35] VITALS: BP 127/67
[2017-05-06] MEDS: METOPROLOL TART 50 MG TAB PO SCH ×2 (23:38→23:50)
[2017-05-06] MEDS: ALLOPURINOL 300 MG TAB PO SCH (23:38)
[2017-05-06] MEDS: PANTOPRAZOLE 40MG TAB (PROTONIX) PO SCH (23:38)
[2017-05-06] MEDS: PIPERACILLIN/TAZOBACTAM SOD 3.375 GM in D5W MINI-BAG PLUS 50 ML IV SCH (23:40)
[2017-05-06 23:47] LABS: MEAN CORPUSCULAR HEMOGLOBIN 29.1 pg (27.0-33.0); MEAN CORPUSCULAR HGB CONC 32.8 g/dl (32.0-36.5); MEAN CORPUSCULAR VOLUME 88.7 fl (80.0-96.0); RED CELL DISTRIBUTION WIDTH 14.1 % (11.5-14.5); WHITE BLOOD COUNT 11.8 K/mm3 (4.0-10.0)
[2017-05-06 23:55] LABS: INR 1.15
[2017-05-07] VITALS (8 sets, daily range): BP systolic 12–126; BP diastolic 60–79
[2017-05-07] MEDS: predniSONE 50 MG TAB PO SCH ×2 (00:14→08:41)
[2017-05-07 00:18] LABS: ALBUMIN 2.3 GM/DL (3.2-5.2); ALBUMIN/GLOBULIN RATIO 0.55 (1.00-1.93); ALKALINE PHOSPHATASE 82 U/L (45-117); ALT/SGPT 28 U/L (12-78); ANION GAP 12 MEQ/L (8-16); AST/SGOT 50 U/L (15-37); BILIRUBIN,TOTAL 0.6 MG/DL (0.2-1.0); BLOOD UREA NITROGEN 25 MG/DL (7-18); CALCIUM LEVEL 8.8 MG/DL (8.8-10.2); CARBON DIOXIDE LEVEL 25 MEQ/L (21-32); CHLORIDE LEVEL 102 MEQ/L (98-107); GLOMERULAR FILTRATION RATE > 60.0 (>42); GLUCOSE, FASTING 68 MG/DL (83-110); POTASSIUM SERUM 4.1 MEQ/L (3.5-5.1); SODIUM LEVEL 139 MEQ/L (136-145); TOTAL PROTEIN 6.5 GM/DL (6.4-8.2); URIC ACID 8.4 MG/DL (3.5-7.2)
[2017-05-07 05:35] LABS: MEAN CORPUSCULAR HEMOGLOBIN 30.3 pg (27.0-33.0); MEAN CORPUSCULAR HGB CONC 34.2 g/dl (32.0-36.5); MEAN CORPUSCULAR VOLUME 88.7 fl (80.0-96.0); WHITE BLOOD COUNT 10.8 K/mm3 (4.0-10.0)
[2017-05-07] MEDS: PIPERACILLIN/TAZOBACTAM SOD 3.375 GM in D5W MINI-BAG PLUS 50 ML IV SCH ×4 (05:49→22:41)
[2017-05-07 06:05] LABS: ALBUMIN 2.4 GM/DL (3.2-5.2); ALBUMIN/GLOBULIN RATIO 0.65 (1.00-1.93); ALKALINE PHOSPHATASE 79 U/L (45-117); ALT/SGPT 28 U/L (12-78); ANION GAP 15 MEQ/L (8-16); AST/SGOT 53 U/L (15-37); BILIRUBIN,TOTAL 0.6 MG/DL (0.2-1.0); BLOOD UREA NITROGEN 29 MG/DL (7-18); CALCIUM LEVEL 8.2 MG/DL (8.8-10.2); CARBON DIOXIDE LEVEL 24 MEQ/L (21-32); CHLORIDE LEVEL 103 MEQ/L (98-107); CREATININE FOR GFR 1.04 MG/DL (0.70-1.30); GLOMERULAR FILTRATION RATE > 60.0 (>42); GLUCOSE, FASTING 75 MG/DL (83-110); POTASSIUM SERUM 4.6 MEQ/L (3.5-5.1); SODIUM LEVEL 142 MEQ/L (136-145); TOTAL PROTEIN 6.1 GM/DL (6.4-8.2); URIC ACID 7.6 MG/DL (3.5-7.2)
[2017-05-07] MEDS: APIXABAN 5 MG TAB (ELIQUIS) PO SCH ×2 (08:40→20:45)
[2017-05-07] MEDS: BENZONATATE 100 MG CAP PO SCH ×3 (08:41→20:46)
[2017-05-07] MEDS: ALLOPURINOL 300 MG TAB PO SCH (08:41)
[2017-05-07] MEDS: PANTOPRAZOLE 40MG TAB (PROTONIX) PO SCH (08:41)
[2017-05-07] MEDS: SENOKOT S TAB PO SCH ×2 (08:41→20:48)
[2017-05-07] MEDS: METOPROLOL TART 50 MG TAB PO SCH (08:44)
[2017-05-07] MEDS ORDERED: PANTOPRAZOLE 40MG INJ (PROTONIX) (C9113) IV SCH (09:00)
[2017-05-07] MEDS ORDERED: METOPROLOL TART 50 MG TAB PO SCH (09:00)
[2017-05-07] MEDS ORDERED: hydroCHLOROthiazide 12.5 MG CAPSULE PO SCH (09:00)
[2017-05-07] MEDS ORDERED: amLODIPine 5 MG TAB PO SCH (09:00)
--- NOTE | 2017-05-07 11:22 | ECGEPIP ---
Stationary ECG Study [facility] Test Date: 2017-05-07 Pat Name: FRITZ MARTINEZ Department: Room: [place] [address] Gender: M Concreting Supervisor: ARABELLA : 1945 Requested By: RENETTA POLLOCK Order Number: [id number] Reading MD: Ashley Duran Measurements Intervals [place] Rate: 107 P: AK: 0 QRS: 34 QRSD: 82 T: 39 QT: 351 QTc: 470 Interpretive Statements ATRIAL FIBRILLATION WITH RAPID VENTRICULAR RESPONSE NONSPECIFIC T-WAVE ABNORMALITY ABNORMAL RHYTHM ECG similar to 04/30/17 Electronically Signed On 05-07-2017 11:22:05 EDT by Ashley Duran
[2017-05-07] MEDS ORDERED: METOPROLOL TART 25 MG TABLET PO ONE (12:00)
[2017-05-07 13:08] LABS: ANION GAP 15 MEQ/L (8-16); BLOOD UREA NITROGEN 32 MG/DL (7-18); CARBON DIOXIDE LEVEL 24 MEQ/L (21-32); CHLORIDE LEVEL 102 MEQ/L (98-107); CREATININE FOR GFR 1.23 MG/DL (0.70-1.30); GLOMERULAR FILTRATION RATE > 60.0 (>42); GLUCOSE, FASTING 150 MG/DL (83-110); PHOSPHORUS LEVEL 4.6 MG/DL (2.5-4.9); POTASSIUM SERUM 4.1 MEQ/L (3.5-5.1); SODIUM LEVEL 141 MEQ/L (136-145)
[2017-05-07 13:32] LABS: VENOUS BASE EXCESS -3.7 (-2.0-2.0); VENOUS O2 SATURATION 98.9 % (60.0-80.0); VENOUS PARTIAL PRESSURE CO2 27.8 mmHg (38.0-50.0); VENOUS PARTIAL PRESSURE O2 146.3 mmHg (30.0-50.0); VENOUS STANDARD HCO3 21.4 MEQ/L; VENOUS TOTAL CO2 19.7 MEQ/L (24.0-28.0)
[2017-05-07] MEDS: NS 1,000 ML IV SCH ×2 (14:02→22:41)
--- NOTE | 2017-05-07 14:18 | IPNPDOC ---
Text Note Date of Service The patient was seen on 05/07/17. NOTE CC: Shortness of breath. Subjective: Patient states that he is feeling better today. Denies any shortness of breath at the moment. Currently is on 4 L of oxygen nasal cannula. Is having some lower extremity edema. States it is not not have this at home. Was up walking around in his room to the bathroom and back to his bed. Patient is currently sitting in his chair in his room. Objective: Vitals: (see below) General: No acute distress, sitting comfortably in his recliner chair. On oxygen , 4 L NC. HEENT: Moist mucous membranes. Neck: No JVD or thyromegaly. Cardiac: Normal s1 and s2. No murmurs. Pulm: Diminished breath sounds right side. Abd: Normal Bowel sounds to auscultation. No tenderness to palpation. Ext: 2+ edema up to knees bilaterally. Radial pulse 2/4 bilaterally. Pysch: Normal affect. Labs (see below) Assessment/Plan 1. Rapidly progressing metastatic B-Cell Lymphoma: Currently monitoring patient for possible Tumor Lysis Syndrome. Currently does not meet the criteria. Monitoring patient's electrolytes especially potassium and calcium. Also checking patient's kidney function, following creatinine level and urine output. Repeating patient's BMP. Patient currently on Prednisone 100 mg daily. Treating patient for 5 days. Patient also on Allopurinol to lower uric acid. Following uric acid levels. If allopurinol fails, may need to give patient rasburicase IV. 2. Atrial Fibrillation with rapid ventricular response: Continue patient on anticoagulation. Titrating up patient's Metoprolol 75 mg BID today. Continue telemetry. 3. Lactic acidosis: Patient has elevated lactate level. Currently trending at this time. Potential causes of patient's lactic acidosis include hypoxia, patient's B cell lymphoma, tachycardia from atrial fibrillation, potential sepsis, hypovolemia and decreased renal clearance. Patient is currently on oxygen nasal cannula, 4 L. Monitoring patient's pulse oximetry and PaO2 at this time. Ordering blood gases. Could be from patient's atrial fibrillation causing tachycardia. 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 Patient could have a underlying sepsis from infection. Following patient for fever, cough. Blood cultures and urine cultures pending. If positive will treat. On Zosyn at this time. Treating patient's hypovolemia with IV NS bolus. Repeating lactic acid. 4. Hypoxia, shortness of breath: Maybe secondary to patient's atrial fibrillation with rapid ventricular response. Patient is on nasal canula. Decreased patient from 5 L to 4L. Monitoring patient 's O2. 5. Hypertension: Titrate up patient's Metoprolol 75 BID. Holding other home medications at this time. 6. Chronic pain: Pain medication ordered by Dr. Nielsen. Continue at this time. DVT prophy: [email or web address] Dispo: Continuing management of medical problems at this time. Discussed patient with Dr. Clark. Prognosis guarded. VS,Fishbone, I+O VS, Fishbone, I+O Laboratory Tests 05/06/17 23:26 Red Blood Count 4.39, Mean Corpuscular Volume 88.7, Mean Corpuscular Hemoglobin 29.1, Mean Corpuscular Hemoglobin Concent 32.8, Red Cell Distribution Width 14.1 , Calcium Level 8.8, Aspartate Amino Transf (AST/SGOT) 50 H, Alanine Aminotransferase (ALT/SGPT) 28, Lactate Dehydrogenase 1141 H, Total Creatine Kinase 95, Alkaline Phosphatase 82, Total Bilirubin 0.6, Uric Acid 8.4 H, Total Protein 6.5, Albumin 2.3 L 05/07/17 05:06 Red Blood Count 4.46, Mean Corpuscular Volume 88.7, Mean Corpuscular Hemoglobin 30.3, Mean Corpuscular Hemoglobin Concent 34.2, Red Cell Distribution Width 14.0 , Calcium Level 8.2 L, Aspartate Amino Transf (AST/SGOT) 53 H, Alanine Aminotransferase (ALT/SGPT) 28, Lactate Dehydrogenase 1114 H, Alkaline Phosphatase 79, Total Bilirubin 0.6, Uric Acid 7.6 H, Total Protein 6.1 L, Albumin 2.4 L 05/07/17 12:18 Calcium Level 8.0 L Vital Signs Date Time Temp Pulse Resp B/P (MAP) Pulse Ox O2 Delivery O2 Flow Rate FiO2 05/07/17 12:00 Nasal Cannula 4.0 05/07/17 08:44 116 117/72 05/07/17 07:35 96.9 20 94 I&O- Last 24 Hours up to 6 AM 05/07/17 06:00 Intake Total 805 ml Output Total 410 ml Balance 395 ml GME ATTESTATION GME ATTESTATION My preceptor for this patient encounter was Dr. Pollock and he was physically present in the building during the encounter and was fully available. As needed , all aspects of the patient interview, examination, medical decision making process, and medical care plan development were reviewed and approved by the preceptor. Preceptor is aware and concurs with the plan as stated in the body of this note and will attest to such by his/her co-signature. MARIO ALBERTO ZAMORA DO May 07, 2017 13:54 RENETTA POLLOCK MD May 20, 2017 04:41
[2017-05-07] MEDS ORDERED: ALBUTEROL SULFATE 2.5 MG/0.5 ML INH NEB SOLN INH PRN (15:15)
[2017-05-07] MEDS ORDERED: SODIUM CHLORIDE 0.9% 1000 ML IV ONE (15:15)
[2017-05-07] MEDS: IPRATROPIUM 0.5MG/ALBUTEROL 2.5MG INH SOL UD 3ML (DUONEB)(J7620) NEB SCH ×2 (16:00→19:41)
[2017-05-07 18:30] LABS: ABG BASE EXCESS -2.6 (-2.0-2.0); ABG HCO3 20.7 MEQ/L (22.0-26.0); ABG PARTIAL PRESSURE CO2 31.7 mmHg (35.0-45.0); ABG PARTIAL PRESSURE O2 69.2 mmHg (75.0-100.0); ABG STANDARD HCO3 22.2 MEQ/L (22.0-26.0); ABG TOTAL CO2 21.6 MEQ/L (23.0-31.0); ABG pH (ARTERIAL) 7.432 UNITS (7.350-7.450)
[2017-05-07 18:37] LABS: BLOOD UREA NITROGEN 35 MG/DL (7-18); CARBON DIOXIDE LEVEL 23 MEQ/L (21-32); CHLORIDE LEVEL 104 MEQ/L (98-107); CREATININE FOR GFR 1.21 MG/DL (0.70-1.30); GLUCOSE, FASTING 152 MG/DL (83-110); POTASSIUM SERUM 3.6 MEQ/L (3.5-5.1); SODIUM LEVEL 142 MEQ/L (136-145)
[2017-05-07 18:47] LABS: PHOSPHORUS LEVEL 3.7 MG/DL (2.5-4.9)
[2017-05-07] MEDS: SODIUM CHLORIDE 0.9% 1000 ML IV ONE ×2 (19:30)
[2017-05-07 20:10] LABS: ANION GAP 15 MEQ/L (8-16)
[2017-05-07] MEDS: METOPROLOL TART 25 MG TABLET PO SCH (20:47)
--- NOTE | 2017-05-07 22:06 | CR ---
DATE OF CONSULTATION: 05/07/2017 REASON FOR CONSULTATION: Dr. Beryl Murcia requested a medical oncology consult for a patient with B- cell lymphoma admitted following right axillary node excision with shortness of breath. Mr. Russell is a 72-year-old man recently diagnosed with a double expresser Diffuse Large B-cell lymphoma after presenting to the hospital about a week ago with shortness of breath. He was found to have bulky mediastinal chest adenopathy and apparent consolidated, possibly partially-obstructed right lower lobe, as well as axillary adenopathy without below the diaphragm adenopathy. An axillary node fine needle aspiration (FNA) was done and he was discharged and referred to oncology. I saw him for the first time two days ago,, when he presented for initial treatment recommendations. On that visit, he had a portable nasal cannula oxygen two liters, was reporting some exertional dyspnea and new pedal edema. On exam, he had coarse right lower lobe breath sounds with mildly tachypneic, mildly tachycardiac with atrial fibrillation apparently recently diagnosed and recently begun on anticoagulation. Review of the final pathology revealed diffuse large B-cell lymphoma of terminal center origin double expresser with additional studies for possible double hit lymphoma still pending. On that visit I explained to Mr. Russell the difference between double expresser and double hit, two increased levels of risk in terms of the diffuse large B- cell lymphoma diagnosis, but each with different treatment recommendations, double hit lymphoma requiring a more aggressive regimen than double expresser. It was important to obtain an excisional biopsy for full evaluation in the event the FNA was unrevealing and we organized that at that time. He had the right axillary biopsy yesterday. Following the procedure with Dr. Nielsen, became somewhat more tachycardiac and shortness of breath and was admitted to the hospital. Prior to hospitalization it had been planned that following the biopsy he would start prednisone high dose 100 mg daily for five days, as well as allopurinol 300 mg, which had already bee prescribed. This was started last night. Admission notable for WBC 10.8, hemoglobin 13, hematocrit 39, platelets 246. Lactic acid 4.6 going down to 3.7, creatinine 1.0. Unremarkable AST, ALT and alkaline phosphatase, but lactate dehydrogenase 1114, and uric acid 7.6 with calcium 8.2 and albumin 2.4. Heart rate was elevated in the 120s, blood pressure held and oxygen saturations were in the high 80s. This morning, heart rate in the 100 range, oxygen saturation 94-95, afebrile. At the bedside, Mr. Russell is seated upright in a recliner chair chatting on the phone. He appears and reports feling more comfortable then in my office two days ago. He reports his coughing is diminished, he feels much better than last night. On physical exam he has bilateral 2+ pitting pedal edema, symmetric. Good air movement in most lung forbes, somewhat coarse lung sounds in the right midlung field but, in fact, better air movement than in the office two days ago. PAST MEDICAL HISTORY: 1. Very recent diagnosis of clinical stage II B-cell lymphoma double expresser with bulky mediastinal adenopathy and likely partially obstructed right lower lobe. 2. Obesity 3. Hypertension. 4. New onset atrial fibrillation. ALLERGIES: ORANGE JUICE. PAST SURGICAL HISTORY: 1. Right axillary node excisional biopsy 05/06/2017. 2. Elbow surgery. 3. Cataract extraction. HOME MEDICATIONS: Reviewed. Inpatient medications as follows: - pantoprazole 40 mg intravenous (IV) daily - Senokot twice a day by mouth - amlodipine 5 mg by mouth daily - apixaban 5 mg twice a day by mouth - Tessalon Perles 100 mg three times a day by mouth - hydrochlorothiazide 12.5 mg by mouth daily - piperacillin/tazobactam 3.375 every six hours IV - metoprolol 50 mg by mouth twice a day - prednisone 100 mg by mouth daily (this should extend for five days) - subcutaneous heparin 5000 units SC bid - ondansetron 4 mg every six hours as needed IV for nausea - acetaminophen 650 mg by mouth every four hors as needed - hydrocodone 5/325 every four hours as needed orally - ketorolac 15 mg every six hours as needed IV - albuterol two puffs every four hours as needed PHYSICAL EXAMINATION: Noted above. Current Vital signs: Pulse 116, blood pressure 117/72, as of 8 a.m., on five liters nasal cannula. Oxygen saturation 94. Exam reported above IMPRESSION: Clinical stage II diffuse large B-cell lymphoma double expresser (double hit status unclear), status post right axillary lymph node excisional biopsy in a 72 -year-old man with baseline usual for age medical problems and recent onset atrial fibrillation. He is admitted now with symptomatic rapid atrial fibrillation following the right axillary biopsy yesterday, with improved heart rate and breathing symptoms and having started high dose prednisone 05/06/2017. It's likely his a-fib is secondary to lymphoma related mediastinal bulky disease versus pulmonary hypertension versus both, and may improved and possibly resolve with treatment of the lymphoma. Current labs are borderline for meeting criteria for tumor lysis syndrome; he is at high risk for this. He should continue allopurinol 300 mg daily. Uric acid, potassium, phosphorus and calcium and urine output need to be monitored twice daily. Apollo TLS diagnosis depends on uric acid >8, potassium > 6, phosphorus > 4.5 or calcium <7, and/or 25% increase above baseline. Of note, current calcium 8.2 corrects to normal based on albumin. RECOMMENDATIONS: 1. Given clinical improvement overnight and decreased cough, continue prednisone 100 mg by mouth daily to complete a five-day course. (Alternatively, a more aggressive corticosteroid approach would be methylprednisolone 1000 mg/m2 x 3 days.) 2. Strongly recommend continuing gastrointestinal (GI) prophylaxis with a proton pump inhibitor. 3. IV hydration to prevent full blown tumor lysis syndrome. Urine output should be at least 80-100 mL per meter squared per day (his BSA is approximately 2.) This will need to be balanced with the need for diuresis, given peripheral edema, low albumin, and likely 3rd spacing associated lung congestion. 4. Monitor TLS electrolytes and UOP twice daily as described above. Should allopurinol be ineadquate to control serum uric acid, rasburicase IV would need to be started. This is not on formulary. I discussed rasburicase with pharmacy, who would need to be alerted for a 1- or 2- day delivery time turnaround.Currently it is premature to start rasburicase but should uric acid begin to rise, pharmacy should be notified to please order rasburicase for potential need on Tuesday. I will follow daily. MTDD
[2017-05-08] VITALS (7 sets, daily range): BP systolic 116–139; BP diastolic 60–80
[2017-05-08 00:51] LABS: CALCIUM LEVEL 8.7 MG/DL (8.8-10.2); CREATININE FOR GFR 1.4 MG/DL (0.70-1.30); GLOMERULAR FILTRATION RATE 52.7 (>42); PHOSPHORUS LEVEL 3.3 MG/DL (2.5-4.9); POTASSIUM SERUM 3.6 MEQ/L (3.5-5.1)
[2017-05-08] MEDS ORDERED: FUROSEMIDE 40 MG/4 ML VIAL (J1940) IV ONE ×2 (02:15→09:45)
[2017-05-08] MEDS: IPRATROPIUM 0.5MG/ALBUTEROL 2.5MG INH SOL UD 3ML (DUONEB)(J7620) NEB SCH ×7 (03:22→23:28)
[2017-05-08 03:28] LABS: MEAN CORPUSCULAR HEMOGLOBIN 29.7 pg (27.0-33.0); MEAN CORPUSCULAR HGB CONC 33.6 g/dl (32.0-36.5); MEAN CORPUSCULAR VOLUME 88.3 fl (80.0-96.0); RED CELL DISTRIBUTION WIDTH 14.2 % (11.5-14.5)
[2017-05-08 04:05] LABS: ALBUMIN 2.5 GM/DL (3.2-5.2); ALBUMIN/GLOBULIN RATIO 0.64 (1.00-1.93); BILIRUBIN,TOTAL 0.4 MG/DL (0.2-1.0); CALCIUM LEVEL 8.4 MG/DL (8.8-10.2); CREATININE FOR GFR 1.28 MG/DL (0.70-1.30); GLOMERULAR FILTRATION RATE 58.5 (>42); POTASSIUM SERUM 3.9 MEQ/L (3.5-5.1); TOTAL PROTEIN 6.4 GM/DL (6.4-8.2); URIC ACID 5.7 MG/DL (3.5-7.2)
[2017-05-08] MEDS: PIPERACILLIN/TAZOBACTAM SOD 3.375 GM in D5W MINI-BAG PLUS 50 ML IV SCH ×4 (05:40→22:09)
--- NOTE | 2017-05-08 06:40 | ECHO ---
DATE OF PROCEDURE: 05/07/2017 REFERRING PHYSICIAN: Dr. Gregory Toscano. INDICATION: Atrial fibrillation. HEIGHT: 70 inches. WEIGHT: 209 pounds. 2D MEASUREMENTS: Aortic root: 4.1 cm Proximal ascending aorta: 3.4 cm Left atrium: 4.0 cm Ventricular septum: 0.86 cm Posterior wall: 0.98 cm Left ventricle diastole: 4.3 cm Left ventricle systole: 2.2 cm Inferior vena cava: 1.8 cm DOPPLER MEASUREMENTS: Aortic valve velocity: 124 cm/s LVOT velocity: 111 cm/s LVOT VTI: 14.2 cm Mitral E velocity: 118 cm/s Mitral deacceleration time: 211 ms Very mild tricuspid regurgitation. Estimated right ventricular systolic pressure 39 mmHg assuming an atrial pressure of 5 mmHg. Pulmonary artery systolic pressure 31 mmHg by pulmonary acceleration time method. MITRAL ANNULAR TISSUE DOPPLER: E-prime lateral: 13.1 cm/s E-prime septal: 10.9 cm/s DESCRIPTION: Rhythm was atrial fibrillation with moderately rapid ventricular response. No pericardial effusion. This was a moderately technically difficult echocardiogram. This was a 2D, M-mode, color flow Doppler and pulsed wave Doppler examination and included mitral annular tissue Doppler. CONCLUSIONS: 1. Normal left ventricle size and wall thickness. No regional LV wall motion abnormalities. Hyperdynamic LV systolic function. LVEF 75% by visual estimate. 2. Normal left atrial size. 3. Suggestive of mild elevation of estimated right ventricle systolic pressure. 4. Mild dilatation of the aortic root at the level of the sinuses of Valsalva. 5. No pericardial effusion. 6. Moderately technically difficult echocardiogram. cc: MD Reyes Reyes DO Fritz Roc, MD
[2017-05-08] MEDS: BENZONATATE 100 MG CAP PO SCH ×3 (08:21→21:55)
[2017-05-08] MEDS: ALLOPURINOL 300 MG TAB PO SCH (08:22)
[2017-05-08] MEDS: SENOKOT S TAB PO SCH ×2 (08:22→21:54)
[2017-05-08] MEDS: predniSONE 50 MG TAB PO SCH (08:22)
[2017-05-08] MEDS: PANTOPRAZOLE 40MG TAB (PROTONIX) PO SCH (08:22)
[2017-05-08] MEDS: APIXABAN 5 MG TAB (ELIQUIS) PO SCH ×2 (08:22→21:55)
[2017-05-08] MEDS: METOPROLOL TART 25 MG TABLET PO SCH ×2 (08:23→21:55)
[2017-05-08] MEDS: NS 1,000 ML IV SCH ×3 (10:00→11:50)
[2017-05-08 10:37] LABS: VENOUS BASE EXCESS 0.6 (-2.0-2.0); VENOUS STANDARD HCO3 25.1 MEQ/L; VENOUS TOTAL CO2 25.1 MEQ/L (24.0-28.0)
[2017-05-08 10:44] LABS: BASO % 0.1 % (0.0-1.0); LARGE UNSTAINED CELL # 0.3 K/mm3 (0.0-0.4); LARGE UNSTAINED CELL % 1.6 % (0.0-4.0); LYMPH # 0.6 K/mm3 (1.5-4.5); LYMPH % 2.8 % (24.0-44.0); MEAN CORPUSCULAR HEMOGLOBIN 30.6 pg (27.0-33.0); MEAN CORPUSCULAR HGB CONC 34.9 g/dl (32.0-36.5); MEAN CORPUSCULAR VOLUME 87.6 fl (80.0-96.0); MONO # 0.6 K/mm3 (0.0-0.8); NEUTROPHILS # 17.9 K/mm3 (1.8-7.7); NEUTROPHILS % 92.5 % (36.0-66.0); PLATELET COUNT, AUTOMATED 308 k/mm3 (150-450); RED CELL DISTRIBUTION WIDTH 14.1 % (11.5-14.5); WHITE BLOOD COUNT 19.3 K/mm3 (4.0-10.0)
[2017-05-08 11:00] LABS: ALBUMIN 2.6 GM/DL (3.2-5.2); ALBUMIN/GLOBULIN RATIO 0.65 (1.00-1.93); ALKALINE PHOSPHATASE 78 U/L (45-117); ALT/SGPT 30 U/L (12-78); ANION GAP 14 MEQ/L (8-16); AST/SGOT 55 U/L (15-37); BILIRUBIN,TOTAL 0.4 MG/DL (0.2-1.0); BLOOD UREA NITROGEN 30 MG/DL (7-18); CALCIUM LEVEL 8.6 MG/DL (8.8-10.2); CARBON DIOXIDE LEVEL 25 MEQ/L (21-32); CHLORIDE LEVEL 104 MEQ/L (98-107); CREATININE FOR GFR 1.21 MG/DL (0.70-1.30); GLOMERULAR FILTRATION RATE > 60.0 (>42); GLUCOSE, FASTING 133 MG/DL (83-110); POTASSIUM SERUM 3.3 MEQ/L (3.5-5.1); SODIUM LEVEL 143 MEQ/L (136-145); TOTAL PROTEIN 6.6 GM/DL (6.4-8.2)
--- NOTE | 2017-05-08 14:04 | IPNPDOC ---
Text Note Date of Service The patient was seen on 05/08/17. NOTE Subjective: Objective: Vitals: (see below) General: No acute distress, laying comfortably in bed. HEENT: Moist mucous membranes. Neck: No JVD or lymphadenopathy Cardiac: Irregularly irregular. No murmurs Pulm: Coarse crackles at the bases bilaterally. No wheezing, rhonchi Abd: NT/ND + BS. Obese. Ext: 1+ pitting edema bilateral lower extremities. No cyanosis. Right axillary region excisional biopsy sutures intact, area clean and dry. No purulent or bloody drainage. Labs (see below) Images: Chest x-ray 05/07/17 Impression: Lesser level of inspiration, increased pulmonary opacification in the lung forbes bilaterally. Bilateral mediastinal widening and hilar fullness. Assessment/Plan 1. Rapidly progressing metastatic B-Cell Lymphoma:Management per Dr. Clark. Dr. Clark has recommended starting the patient on prednisone 100 mg daily for a total 5 days. She will be managing his risk for tumor lysis syndrome. Allopurinol was ordered, and labs were monitored per recommendations. Cont IVF/ Lasix.Continue monitoring of uric acid levels well this patient may need rasburicase IV. 2. Lactic acidosis- likely multifactorial, the patient has been adequately volume resuscitated, and is likely a result of the patient's underlying lymphoma. Patient was also hypoxic/ tachycardic on presentation however his heart rate and oxygen requirements have improved since admission. The patient's lactic acid was 3.9 before being discharged on recent admission. 3. Atrial fibrillation- rate controlled. On metoprolol and Eliquis. 4. Hypertension controlled- 5. History of COPD on 2 L oxygen at home. 6. History of chronic pain DVT prophy: on Eliquis Patient states he would like to be DNR/DNI. Prognosis is guarded, patient is aware. VS,Fishbone, I+O VS, Fishbone, I+O Laboratory Tests 05/07/17 17:59 Calcium Level 8.0 L 05/07/17 22:52 Calcium Level 8.7 L 05/08/17 03:20 Calcium Level 8.4 L, Red Blood Count 4.52, Mean Corpuscular Volume 88.3, Mean Corpuscular Hemoglobin 29.7, Mean Corpuscular Hemoglobin Concent 33.6, Red Cell Distribution Width 14.2, Phosphorus Level 3.0, Aspartate Amino Transf (AST/SGOT ) 55 H, Alanine Aminotransferase (ALT/SGPT) 29, Lactate Dehydrogenase 1126 H, Alkaline Phosphatase 80, Total Bilirubin 0.4, Uric Acid 5.7, Total Protein 6.4, Albumin 2.5 L 05/08/17 10:26 Calcium Level 8.6 L, Red Blood Count 4.52, Mean Corpuscular Volume 87.6, Mean Corpuscular Hemoglobin 30.6, Mean Corpuscular Hemoglobin Concent 34.9, Red Cell Distribution Width 14.1, Aspartate Amino Transf (AST/SGOT) 55 H, Alanine Aminotransferase (ALT/SGPT) 30, Alkaline Phosphatase 78, Total Bilirubin 0.4, Total Protein 6.6, Albumin 2.6 L, Neutrophils (%) (Auto) 92.5 H, Lymphocytes (% ) (Auto) 2.8 L, Monocytes (%) (Auto) 3.0, Eosinophils (%) (Auto) 0.0, Basophils (%) (Auto) 0.1, Neutrophils # (Auto) 17.9 H, Lymphocytes # (Auto) 0.6 L, Monocytes # (Auto) 0.6, Eosinophils # (Auto) 0.0, Basophils # (Auto) 0.0 Vital Signs Date Time Temp Pulse Resp B/P (MAP) Pulse Ox O2 Delivery O2 Flow Rate FiO2 05/08/17 12:00 98.0 100 20 120/60 (80) 90 Nasal Cannula 05/08/17 08:00 3.0 I&O- Last 24 Hours up to 6 AM 05/08/17 06:00 Intake Total 4090 ml Output Total 1500 ml Balance 2590 ml RENETTA POLLOCK MD May 08, 2017 14:04
[2017-05-08] MEDS ORDERED: POTASSIUM CHLORIDE 10 MEQ SR TABLET PO ONE (14:30)
[2017-05-08] MEDS ORDERED: zolPIDEM TARTRATE 5 MG TAB PO PRN (15:45)
--- NOTE | 2017-05-08 16:38 | IPN ---
DATE: 05/08/2017 SUBJECTIVE: Mr. Russell this morning is again seated in his chair accompanied by friends visiting. He reports a difficult night due to having to urinate frequently. His cough returned a little bit in the night but is better now. He says he is talking a lot. OBJECTIVE: Vital signs are stable and on my exam, his peripheral and apical pulses are regular and approximately 100. On lung exam, there is significant improvement of air movement throughout the lungs with no rhonchi. LABORATORY DATA: Labs are notable for normalization of uric acid, stable LDH at 1126, mild transaminitis, normal phosphorus, normalized/corrected calcium. Leukocytosis likely secondary to prednisone and persistent hypoalbuminemia of 2.5. IMPRESSION: Clarence Russell is a 72-year-old man with clinical stage II bulky mediastinal adenopathy, diffuse large B-cell lymphoma with double expresser phenotype, uncertain if double hit genotype. Clinically stable on high-dose prednisone following right axillary node excisional biopsy, complicated postoperatively by rapid atrial fibrillation (A fib), shortness of breath and hypoxemia. He appears stable and even improved today in terms of improved tumor lysis type labs on fluids and diuresis with normalized uric acid. Clinically on exam, much improved lung exam and together with his heart rate this may be due to effect of prednisone on chest adenopathy. PLAN/RECOMMENDATIONS 1. Continue twice a day electrolyte evaluation and urine output, followup times one more 24-hour period. 2. Continue current hydration and diuresis one additional day. 3. As long as stable in terms of tumor lysis syndrome (TLS) labs, vital signs, this patient is likely going to be able to go home within 48 hours. He currently has a followup appointment with me on Tuesday to begin active treatment for his lymphoma. This appointment is in the morning. If he is not able to leave the hospital in time to be at an 8 a.m. appointment Tuesday, we can easily change his appointment. Karina White our nurse navigator can help coordinate. Her telephone number available in other notes but also to here listed as [phone]. Will continue to follow. [place]
[2017-05-08 18:43] LABS: CREATININE FOR GFR 1.41 MG/DL (0.70-1.30); GLOMERULAR FILTRATION RATE 52.3 (>42); POTASSIUM SERUM 3.3 MEQ/L (3.5-5.1)
[2017-05-08 19:10] LABS: PHOSPHORUS LEVEL 1.8 MG/DL (2.5-4.9)
[2017-05-08] MEDS ORDERED: POTASSIUM PHOSPHATE INJ 30 MMOL in D5W 500 ML IV ONE (22:00)
[2017-05-09 00:30] LABS: CALCIUM LEVEL 8.7 MG/DL (8.8-10.2); CREATININE FOR GFR 1.26 MG/DL (0.70-1.30); GLOMERULAR FILTRATION RATE 59.6 (>42); PHOSPHORUS LEVEL 2.6 MG/DL (2.5-4.9); POTASSIUM SERUM 3.2 MEQ/L (3.5-5.1)
[2017-05-09 03:23] VITALS: BP 121/66
[2017-05-09] MEDS: IPRATROPIUM 0.5MG/ALBUTEROL 2.5MG INH SOL UD 3ML (DUONEB)(J7620) NEB SCH ×4 (04:00→23:53)
[2017-05-09 05:38] LABS: MEAN CORPUSCULAR HEMOGLOBIN 30.2 pg (27.0-33.0); MEAN CORPUSCULAR HGB CONC 33.8 g/dl (32.0-36.5); MEAN CORPUSCULAR VOLUME 89.3 fl (80.0-96.0); RED CELL DISTRIBUTION WIDTH 14.5 % (11.5-14.5); WHITE BLOOD COUNT 15.6 K/mm3 (4.0-10.0)
[2017-05-09 05:55] LABS: ALBUMIN 2.4 GM/DL (3.2-5.2); ALKALINE PHOSPHATASE 77 U/L (45-117); ALT/SGPT 32 U/L (12-78); ANION GAP 13 MEQ/L (8-16); AST/SGOT 53 U/L (15-37); BILIRUBIN,TOTAL 0.4 MG/DL (0.2-1.0); BLOOD UREA NITROGEN 29 MG/DL (7-18); CARBON DIOXIDE LEVEL 25 MEQ/L (21-32); CHLORIDE LEVEL 107 MEQ/L (98-107); CREATININE FOR GFR 1.14 MG/DL (0.70-1.30); GLOMERULAR FILTRATION RATE > 60.0 (>42); GLUCOSE, FASTING 93 MG/DL (83-110); PHOSPHORUS LEVEL 3.7 MG/DL (2.5-4.9); POTASSIUM SERUM 3.5 MEQ/L (3.5-5.1); SODIUM LEVEL 145 MEQ/L (136-145); TOTAL PROTEIN 6.4 GM/DL (6.4-8.2)
[2017-05-09] MEDS: PIPERACILLIN/TAZOBACTAM SOD 3.375 GM in D5W MINI-BAG PLUS 50 ML IV SCH ×4 (05:57→22:20)
[2017-05-09 07:56] VITALS: BP 125/86
[2017-05-09] MEDS: ALLOPURINOL 300 MG TAB PO SCH (09:44)
[2017-05-09] MEDS: SENOKOT S TAB PO SCH ×2 (09:44→20:34)
[2017-05-09] MEDS: BENZONATATE 100 MG CAP PO SCH ×3 (09:44→20:35)
[2017-05-09] MEDS: predniSONE 50 MG TAB PO SCH (09:44)
[2017-05-09] MEDS: PANTOPRAZOLE 40MG TAB (PROTONIX) PO SCH (09:44)
[2017-05-09] MEDS: APIXABAN 5 MG TAB (ELIQUIS) PO SCH ×2 (09:44→20:35)
[2017-05-09] MEDS: METOPROLOL TART 25 MG TABLET PO SCH ×2 (09:45→20:35)
[2017-05-09] MEDS: NS 1,000 ML IV SCH (10:00)
[2017-05-09 11:36] VITALS: BP 148/87
[2017-05-09] MEDS ORDERED: FUROSEMIDE 40 MG/4 ML VIAL (J1940) IV ONE (11:45)
[2017-05-09 16:00] VITALS: BP 134/73
--- NOTE | 2017-05-09 18:32 | RO ---
DATE OF PROCEDURE: 05/06/2017 PREOPERATIVE DIAGNOSIS: Lymphoma. POSTOPERATIVE DIAGNOSIS: Lymphoma. OPERATIVE PROCEDURE: Right axillary lymph node dissection. SURGEON: Reyes Nielsen DO SUPERINTENDENT NONSELLING: None. ANESTHESIA: IV sedation with 20 mL of local Marcaine with epinephrine. COMPLICATIONS: None. INDICATIONS FOR PROCEDURE: The patient is a 72-year-old male recently diagnosed with B-cell lymphoma. However, prior to starting any steroids to assist his breathing or chemotherapy, he needs to have an excisional biopsy rather than a fine-needle aspiration of his lymph nodes to have help determine the type of chemo that he needs. The patient understands that he is high risk because of his increased shortness of breath and tachypnea, however, he has consented to procedure. The other risk of procedure not limited to but including bleeding, infection, lymphocele formation, seroma, possible need for further surgery were discussed in detail with the patient. He understands and signed consent. DESCRIPTION OF PROCEDURE: The patient brought back to operating room two. After sufficient sedation, the right axilla was sterilely prepped and draped. Next, a time-out was done to confirm proper patient and proper procedure. Following that, local was injected in the skin and subcutaneous tissue in the mid axillary area. Next, a 6 cm horizontal incision was created with a scalpel. Incision was carried down through the skin and subcutaneous tissues using electrocautery. Next, using careful blunt dissection, using Metzenbaum scissors, a large lymph node bundle was encountered. This was carefully dissected circumferentially. The lymphatics were tied off with a #2-0 silk suture and this chunk of lymph node lymphatic tissue was removed. On examination on the back table it appeared to be mostly fatty with a very hard lymph node in the center of it, but it was uncertain if this was the large mass that had been lighting up on his CT scan. Therefore, I decided to continue with the dissection deeper. There were a couple more hard lymph nodes that were encountered. I had three more areas that were carefully dissected free, deep to the pectoralis minor muscle up against the ribcage. These were carefully dissected free, ligated, again using #2-0 silk suture and removed. Once all three of these specimens had been removed, they were sent up to pathology who was called in to prepare the slides, fresh. She gave me a call back shortly afterwards saying that the first one I had removed was just a fatty lymph node, but the other ones that were removed did show lymphoma in them and she had the slides prepared and sent them down to [facility] for further testing on Tuesday morning. Once this completed, the incision was closed. The subcutaneous tissues were approximated using a #2-0 chromic suture. A TLS drain was placed inside of the wound to help reduce seroma formation. This was just taped in place using Steri-Strips. The skin incision was approximated with 4-0 nylon sutures, interrupted fashion. The entire was then cleaned and dried, 4 x 4 and tape were applied, thus ending procedure.
[2017-05-09 18:38] LABS: CALCIUM LEVEL 8.6 MG/DL (8.8-10.2); CREATININE FOR GFR 1.32 MG/DL (0.70-1.30); GLOMERULAR FILTRATION RATE 56.4 (>42); PHOSPHORUS LEVEL 2.8 MG/DL (2.5-4.9); POTASSIUM SERUM 3.5 MEQ/L (3.5-5.1)
[2017-05-09 20:21] VITALS: BP 134/69
[2017-05-10] VITALS (7 sets, daily range): BP systolic 114–149; BP diastolic 60–84
[2017-05-10 00:20] LABS: CALCIUM LEVEL 8.9 MG/DL (8.8-10.2); CREATININE FOR GFR 1.27 MG/DL (0.70-1.30); PHOSPHORUS LEVEL 3.1 MG/DL (2.5-4.9); POTASSIUM SERUM 3.5 MEQ/L (3.5-5.1)
[2017-05-10] MEDS: IPRATROPIUM 0.5MG/ALBUTEROL 2.5MG INH SOL UD 3ML (DUONEB)(J7620) NEB SCH ×6 (04:22→23:48)
[2017-05-10 05:16] LABS: MEAN CORPUSCULAR HEMOGLOBIN 30.6 pg (27.0-33.0); MEAN CORPUSCULAR HGB CONC 34.7 g/dl (32.0-36.5); MEAN CORPUSCULAR VOLUME 88.1 fl (80.0-96.0); RED CELL DISTRIBUTION WIDTH 14.4 % (11.5-14.5); WHITE BLOOD COUNT 12.6 K/mm3 (4.0-10.0)
[2017-05-10] MEDS: PIPERACILLIN/TAZOBACTAM SOD 3.375 GM in D5W MINI-BAG PLUS 50 ML IV SCH ×4 (05:16→22:58)
[2017-05-10 05:48] LABS: ALBUMIN 2.5 GM/DL (3.2-5.2); ALBUMIN/GLOBULIN RATIO 0.69 (1.00-1.93); ALKALINE PHOSPHATASE 80 U/L (45-117); ALT/SGPT 55 U/L (12-78); ANION GAP 15 MEQ/L (8-16); AST/SGOT 70 U/L (15-37); BILIRUBIN,TOTAL 0.5 MG/DL (0.2-1.0); BLOOD UREA NITROGEN 28 MG/DL (7-18); CARBON DIOXIDE LEVEL 24 MEQ/L (21-32); CHLORIDE LEVEL 106 MEQ/L (98-107); CREATININE FOR GFR 1.11 MG/DL (0.70-1.30); GLOMERULAR FILTRATION RATE > 60.0 (>42); GLUCOSE, FASTING 89 MG/DL (83-110); PHOSPHORUS LEVEL 2.9 MG/DL (2.5-4.9); POTASSIUM SERUM 3.3 MEQ/L (3.5-5.1); SODIUM LEVEL 145 MEQ/L (136-145); TOTAL PROTEIN 6.1 GM/DL (6.4-8.2); URIC ACID 4.5 MG/DL (3.5-7.2)
--- NOTE | 2017-05-10 07:35 | IPNPDOC ---
Text Note Date of Service The patient was seen on 05/09/17. NOTE CC: Shortness of breath. Subjective: Patient wears 2L O2 at home. Still SOB with ambulating. On 3L still. PT did not clear patient yesterday for D/c. Discussed staying one more day with patient since needs to be optimized prior to starting chemotherapy. Patient understood. Objective: Vitals: (see below) General: Mild distress, some tripoding, improves with rest. Sitting in his recliner chair. On oxygen, 3 L NC. HEENT: Moist mucous membranes. Neck: No JVD or thyromegaly. Cardiac: Normal s1 and s2. No murmurs. Pulm: Diminished breath sounds right side. Some mild wheezing. Abd: Round. Normal Bowel sounds to auscultation. No tenderness to palpation. Ext: 2+ edema up to knees bilaterally. Stockings on. Radial pulse 2/4 bilaterally. Pysch: Normal affect. Labs (see below) Assessment/Plan 1. Rapidly progressing metastatic B-Cell Lymphoma: Monitoring patient for possible Tumor Lysis Syndrome. Monitoring patient's electrolytes especially potassium and calcium. Also checking patient's kidney function, following creatinine level and urine output. Repeating patient's BMP in the morning. Patient currently on Prednisone 100 mg daily. Started 05/06. Treating patient for 5 days total. Patient also on Allopurinol to lower uric acid. Following uric acid levels. If allopurinol fails, may need to give patient rasburicase. 2. Atrial Fibrillation with rapid ventricular response: Continue patient on anticoagulation, Eliquis. Increasing Metoprolol 75 mg TID today. Continue telemetry. Monitor for arrhythmias. 3. Hypokalemia: Gave one 40 mEq dose of potassium chloride. Repeat in morning. 3. Lower extremity edema Patient received some lasix IV yesterday. No more today. 4. Lactic acidosis: Patient had elevated lactate level. Most likely secondary to his lymphoma. 4. Hypoxia, shortness of breath: Maybe secondary to patient's atrial fibrillation with rapid ventricular response. Patient is on nasal canula. Decreased patient to 3L. Is on 2L at home. Monitoring patient's O2. See if patient desaturates on ambulation again. 5. Hypertension: Continue Metoprolol 75 BID. Holding other home medications at this time. 6. Chronic pain: Pain medication ordered by Dr. Nielsen. Continue at this time. DVT prophy: TEDs Dispo: Now are primary on patients care. Discussed patient previously with Dr. Clark. Possible D/C tomorrow. Will need to reschedule appointment for chemotherapy with Dr. Clark. Continuing physical therapy. VS,Fishbone, I+O VS, Fishbone, I+O Laboratory Tests 05/08/17 18:04 Calcium Level 8.0 L 05/09/17 00:02 Calcium Level 8.7 L 05/09/17 04:47 Calcium Level 8.0 L, Red Blood Count 4.34, Mean Corpuscular Volume 89.3, Mean Corpuscular Hemoglobin 30.2, Mean Corpuscular Hemoglobin Concent 33.8, Red Cell Distribution Width 14.5, Phosphorus Level 3.7 #, Aspartate Amino Transf (AST/ SGOT) 53 H, Alanine Aminotransferase (ALT/SGPT) 32, Lactate Dehydrogenase 1043 H , Alkaline Phosphatase 77, Total Bilirubin 0.4, Uric Acid 5.0, Total Protein 6.4 , Albumin 2.4 L Vital Signs Date Time Temp Pulse Resp B/P (MAP) Pulse Ox O2 Delivery O2 Flow Rate FiO2 05/09/17 09:45 114 125/86 05/09/17 07:58 Nasal Cannula 3.0 05/09/17 07:56 96.0 20 91 I&O- Last 24 Hours up to 6 AM 05/09/17 06:00 Intake Total 3613 ml Output Total 2800 ml Balance 813 ml GME ATTESTATION GME ATTESTATION I have both independently examined this patient as well as reviewed the dictated note. I have discussed in detail with the resident the findings and plan of treatment as documented in the residents note. I will continue to follow the patient and offer further guidance to the patients care as necessary during this hospital stay. MARIO ALBERTO ZAMORA DO May 09, 2017 11:01 FRITZ SOTELO MD May 16, 2017 15:40
[2017-05-10] MEDS ORDERED: POTASSIUM CHLORIDE 10 MEQ SR TABLET PO ONE (07:45)
[2017-05-10] MEDS: APIXABAN 5 MG TAB (ELIQUIS) PO SCH ×2 (07:59→20:30)
[2017-05-10] MEDS: SENOKOT S TAB PO SCH ×2 (07:59→20:32)
[2017-05-10] MEDS: METOPROLOL TART 25 MG TABLET PO SCH ×3 (07:59→20:32)
[2017-05-10] MEDS: ALLOPURINOL 300 MG TAB PO SCH (07:59)
[2017-05-10] MEDS: PANTOPRAZOLE 40MG TAB (PROTONIX) PO SCH (07:59)
[2017-05-10] MEDS: predniSONE 50 MG TAB PO SCH (08:13)
[2017-05-10] MEDS: BENZONATATE 100 MG CAP PO SCH ×3 (08:13→20:31)
--- NOTE | 2017-05-10 18:37 | IPN ---
DATE: 05/10/2017 Overnight, Mr. Russell was stable. He was not discharged yesterday due to some desaturation on ambulation. At the bedside, his son reports overall, in the last five days, he is improving. Today is day five high-dose prednisone 100 mg by mouth daily. Tumor lysis laboratories have virtually normalized. There is no evidence of tumor lysis currently. Lactate dehydrogenase (LDH) remains stable daily at just about 1000, today 1075. Albumin is 2.5, potassium 3.3, creatinine 1.1, uric acid 4.5. He continues the allopurinol 300 mg daily. At the bedside, Mr. Russell is breathing slightly heavily. He just ate and apparently gets a little short of breath after eating. Most recent vital signs showed a normal temperature, normal blood pressure of 123/60, heart rate in the 110-117 range, pulse oximetry 90%. He has been urinating frequently, getting up to walk to the lavatory. He denies active coughing during the day today, an improvement versus late last week. IMPRESSION: Clinical stage II diffuse large B-cell lymphoma, double expressor phenotype with bulky mediastinal adenopathy. Status post right axillary node excisional biopsy, molecular studies pending. Eastern Cooperative Oncology Group (ECOG) performance status 1-2, limited by shortness of breath due to bulky chest disease but improved on high-dose prednisone and with supplemental oxygen. No evidence of tumor lysis. Lactate dehydrogenase (LDH) remains stable at 1000. Overall, Mr. Russell appears to be partially responding to high-dose prednisone, clinically stabilized, and clinically improved versus his presentation prior to biopsy last in the office. PLAN/RECOMMENDATIONS: 1. Continue prednisone but as of tomorrow, 05/11/2017, decrease dose to 50 mg by mouth daily with appropriate proton pump inhibitor (PPI). 2. As long as the patient can ambulate and supplemental oxygen can be provided, the optimal next step would be discharge for outpatient chemotherapy with R-CHOP (rituximab, vincristine, doxorubicin, prednisone) at either half or full dose as the best next step in treating this patient's lymphoma which is aggressive. His respiratory symptoms are unlikely to further resolve without chemotherapy and arranging inpatient chemotherapy may be non-feasible this week due to limitations of oncology nursing and inpatient pharmacy. It is understood that this patient's rapid atrial fibrillation has been a rate-limiting issue but currently it appears to be well-controlled and he is not actively symptomatic from it. His atrial fibrillation is likely a complication as well of his lymphoma, recently diagnosed, and he should continue on anticoagulation. I discussed the above with Clarence Lynn MD, the hospitalist covering this patient tonight. We will reconnect first thing in the morning. Call with any questions at . [facility]
--- NOTE | 2017-05-10 20:47 | ECGEPIP ---
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 Electronically Signed On 05-10-2017 20:47:09 EDT by Clarence Garcia
[2017-05-11] MEDS: IPRATROPIUM 0.5MG/ALBUTEROL 2.5MG INH SOL UD 3ML (DUONEB)(J7620) NEB SCH ×3 (03:04→11:44)
[2017-05-11 03:37] VITALS: BP 134/74
[2017-05-11] MEDS: PIPERACILLIN/TAZOBACTAM SOD 3.375 GM in D5W MINI-BAG PLUS 50 ML IV SCH (04:29)
[2017-05-11 05:40] LABS: MEAN CORPUSCULAR HEMOGLOBIN 30.1 pg (27.0-33.0); MEAN CORPUSCULAR VOLUME 88.4 fl (80.0-96.0); RED CELL DISTRIBUTION WIDTH 14.7 % (11.5-14.5); WHITE BLOOD COUNT 13.7 K/mm3 (4.0-10.0)
[2017-05-11 06:06] LABS: ALBUMIN 2.5 GM/DL (3.2-5.2); ALBUMIN/GLOBULIN RATIO 0.64 (1.00-1.93); ALKALINE PHOSPHATASE 75 U/L (45-117); ALT/SGPT 66 U/L (12-78); ANION GAP 13 MEQ/L (8-16); AST/SGOT 62 U/L (15-37); BILIRUBIN,TOTAL 0.6 MG/DL (0.2-1.0); BLOOD UREA NITROGEN 26 MG/DL (7-18); CALCIUM LEVEL 9.3 MG/DL (8.8-10.2); CARBON DIOXIDE LEVEL 24 MEQ/L (21-32); CHLORIDE LEVEL 106 MEQ/L (98-107); CREATININE FOR GFR 1.01 MG/DL (0.70-1.30); GLOMERULAR FILTRATION RATE > 60.0 (>42); GLUCOSE, FASTING 83 MG/DL (83-110); POTASSIUM SERUM 3.4 MEQ/L (3.5-5.1); SODIUM LEVEL 143 MEQ/L (136-145); TOTAL PROTEIN 6.4 GM/DL (6.4-8.2); URIC ACID 4.4 MG/DL (3.5-7.2)
[2017-05-11 08:00] VITALS: BP 142/65
[2017-05-11] MEDS ORDERED: ALLO15TA PO (08:10)
[2017-05-11] MEDS ORDERED: PRED50TA PO (08:10)
[2017-05-11] MEDS ORDERED: METO1TAB87 PO (08:10)
[2017-05-11] MEDS ORDERED: POTASSIUM CHLORIDE 10 MEQ SR TABLET PO ONE (08:30)
[2017-05-11] MEDS: SENOKOT S TAB PO SCH (09:00)
[2017-05-11] MEDS: APIXABAN 5 MG TAB (ELIQUIS) PO SCH (09:23)
[2017-05-11] MEDS: predniSONE 50 MG TAB PO SCH (09:23)
[2017-05-11 09:25] VITALS: BP 142/65
[2017-05-11] MEDS: METOPROLOL TART 25 MG TABLET PO SCH (09:25)
[2017-05-11] MEDS: PANTOPRAZOLE 40MG TAB (PROTONIX) PO SCH (09:25)
[2017-05-11] MEDS: ALLOPURINOL 300 MG TAB PO SCH (09:26)
[2017-05-11] MEDS: BENZONATATE 100 MG CAP PO SCH (09:47)
--- NOTE | 2017-05-11 10:26 | DSES ---
DATE OF ADMISSION: 05/06/2017 DATE OF DISCHARGE: 05/11/2017 SPECIALIST: Dr. Moriah Clark. Dr. Reyes Nielsen. There were no complications during the stay. Procedure performed during his stay include lymph node biopsy. DISCHARGE DIAGNOSES: Include Malignant lymphoma, diffuse large B-cell type, double expressor. Lactic acidosis. Atrial fibrillation. Hypertension. Chronic obstructive pulmonary disease (COPD) on 2 liters of oxygen at home. Chronic hypoxic respiratory failure. History of chronic pain. SUMMARY OF HIS PRESENTATION: This is a 72-year-old who was admitted to the hospital with plan for outpatient biopsy. He developed shortness of breath after his procedure, was brought to the progressive care unit (PCU). He was found to have atrial fibrillation with rapid ventricular response (RVR). He was treated for rapidly progressing metastatic B-cell lymphoma with steroids attempting rate control with beta jose. He was also started on empiric antibiotics, improved slowly. When it was thought to be approaching his baseline, I had a long discussion with Dr. Clark about the need for chemotherapy, which would be more easily managed out of the hospital. We do not have inpatient chemotherapy available to us at the moment. The plan will be to get him out of the hospital today with plans for outpatient chemotherapy to start this week. The patient will be requiring higher levels of oxygen at this time mainly due to the increased tumor burden in his chest. He continues to be somewhat tachycardic. He will be on an increased beta jose, which will need to be adjusted as an outpatient. On the day of discharge, he is feeling well and would like to go home. Temperature 97.4, pulse 112, respiratory rate 22, blood pressure 134/74, 91% on 3 liters. When he ambulates, he does require 4 liters of oxygen. He is awake, appropriate interactive, pleasantly conversant. Mucous membranes moist. Neck supple. There is no obvious elevation in jugular venous pulse. Lungs are grossly clear. Heart in a regular rate and rhythm. He is tachycardic. Abdomen soft, doughy and nontender. He has 2+ lower extremity edema to at least the knees. White cell count 13.7, hemoglobin 13, platelets 268. Sodium 143, potassium 3.4, creatinine 1.01, lactate dehydrogenase is 9.9. Discharge instructions include the following: He will followup with Dr. Moriah Clark as scheduled. 4 liters of oxygen with activity. allopurinol 300 mg by mouth daily metoprolol tartrate 75 mg by mouth three times a day Prednisone 50 mg by mouth daily. That will need to be weaned as an outpatient. I have given his a prescription for 30 tablets. albuterol sulfate two puffs every 4 hours as needed for shortness of breath Norvasc 5mg by mouth daily Apixaban 5 mg by mouth twice a day Tessalon pearls as needed Discontinue hydrochlorothiazide. Discontinue previous dose of metoprolol. edited: 05/12/2017 1220 tkf MTDD
[2017-05-11 12:00] VITALS: BP 135/97
[2017-05-11] MEDS ORDERED: ALB2.5NEB INH (12:39)
[2017-05-11] MEDS ORDERED: IPRASOL4 NEB (12:39)
[2017-05-11] MEDS ORDERED: [UNRECOGNIZED DRUG - CODE] XX ×2 (16:43→16:44)
== END 2017-05-11 14:05 | disposition home health service (06) | DRG 824 ==
LOC: EDSTATUS 07:30 → M PCU 22:00 → M SDC 22:00 → M PCU 22:15 → M SDC 22:15 → M PCU 05-08 18:00 → M SDC 05-11 14:05 → M PCU 05-11 14:05
PROVIDERS: ADMIT Surgery; ATTEND Internal Medicine
PROC: 07B50ZX Excision of Right Axillary Lymphatic, Open Approach, Diagnostic (ICD-10-PCS; principal; 2017-05-06 07:30)
DX: C83.32 Diffuse large B-cell lymphoma, intrathoracic lymph nodes (principal); E87.2 Acidosis; J96.11 Chronic respiratory failure with hypoxia; C77.3 Secondary and unspecified malignant neoplasm of axilla and upper limb lymph nodes; I48.91 Unspecified atrial fibrillation; I10 Essential (primary) hypertension; J44.9 Chronic obstructive pulmonary disease, unspecified; G89.29 Other chronic pain; Z79.01 Long term (current) use of anticoagulants; E66.9 Obesity, unspecified; Z79.899 Other long term (current) drug therapy; Z87.891 Personal history of nicotine dependence

== ENCOUNTER → 2017-05-12 | Outpatient (REF) | payer MEDICARE ==
[~2017-05-12] MED LIST changes: +ALB2.5NEB INH; +ALBU83IN INH; +ALLO15TA PO; +IPRASOL4 INH; +IPRASOL4 NEB; +METO1TAB87 PO; +OMEP20CA3 PO; +PRED50TA PO; +ZOFR20TA PO; +ZYLO300T4 PO; +[UNRECOGNIZED DRUG - CODE] XX
== END ==
LOC: M LAB REF 13:07
PROVIDERS: ATTEND Internal Medicine Medical Oncology
DX: C85.10 Unspecified B-cell lymphoma, unspecified site (principal)

== ENCOUNTER → 2017-05-13 | Outpatient (REF) | payer MEDICARE | LOC: M LAB REF 13:06 | PROVIDERS: ATTEND Internal Medicine Medical Oncology | DX: C85.10 Unspecified B-cell lymphoma, unspecified site (principal) ==

== ENCOUNTER 2017-05-15 12:47 | Inpatient (IN) | payer MEDICARE ==
[~2017-05-15] VITALS: Ht 177.8 cm; Wt 95.3 kg
[~2017-05-15 12:47] MED LIST changes: -ALBU83IN INH; -IPRASOL4 INH; -OMEP20CA3 PO; -ZOFR20TA PO; -ZYLO300T4 PO
[2017-05-15] MEDS ORDERED: methylPREDNISolone INJ 125 MG/2 ML VIAL (J2930) IV ONE (13:15)
[2017-05-15] MEDS ORDERED: ALBUTEROL SULFATE 2.5 MG/0.5 ML INH NEB SOLN INH ONE (13:15)
[2017-05-15] MEDS ORDERED: IPRATROPIUM 0.5MG/ALBUTEROL 2.5MG INH SOL UD 3ML (DUONEB)(J7620) NEB ONE ×2 (13:15→15:00)
[2017-05-15 13:45] LABS: LARGE UNSTAINED CELL # 0.2 K/mm3 (0.0-0.4); LYMPH # 0.6 K/mm3 (1.5-4.5); LYMPH % 1.9 % (24.0-44.0); MEAN CORPUSCULAR HEMOGLOBIN 30.5 pg (27.0-33.0); MEAN CORPUSCULAR HGB CONC 34.1 g/dl (32.0-36.5); MEAN CORPUSCULAR VOLUME 89.5 fl (80.0-96.0); MONO # 0.7 K/mm3 (0.0-0.8); MONO % 3.5 % (0.0-5.0); NEUTROPHILS # 17.8 K/mm3 (1.8-7.7); NEUTROPHILS % 93.5 % (36.0-66.0); PLATELET COUNT, AUTOMATED 243 k/mm3 (150-450); RED CELL DISTRIBUTION WIDTH 14.9 % (11.5-14.5)
[2017-05-15 13:46] LABS: ABG BASE EXCESS -0.4 (-2.0-2.0); ABG HCO3 22.6 MEQ/L (22.0-26.0); ABG PARTIAL PRESSURE CO2 31.9 mmHg (35.0-45.0); ABG PARTIAL PRESSURE O2 65.5 mmHg (75.0-100.0); ABG STANDARD HCO3 24.1 MEQ/L (22.0-26.0); ABG TOTAL CO2 23.6 MEQ/L (23.0-31.0); ABG pH (ARTERIAL) 7.469 UNITS (7.350-7.450)
[2017-05-15 13:52] LABS: INR 1.51
[2017-05-15 14:06] LABS: ANION GAP 12 MEQ/L (8-16); BLOOD UREA NITROGEN 53 MG/DL (7-18); CALCIUM LEVEL 8.9 MG/DL (8.8-10.2); CARBON DIOXIDE LEVEL 26 MEQ/L (21-32); CHLORIDE LEVEL 107 MEQ/L (98-107); CREATININE FOR GFR 1.05 MG/DL (0.70-1.30); GLOMERULAR FILTRATION RATE > 60.0 (>42); GLUCOSE, FASTING 114 MG/DL (83-110); SODIUM LEVEL 145 MEQ/L (136-145)
--- NOTE | 2017-05-15 14:09 | REP ---
Clinical: Dyspnea and cough. Comparison: 05/06/2017. Findings: Examination is limited by portable technique, underpenetration and poor inspiratory effort. Diffuse perihilar and bibasilar opacities along with suspected pleural effusions, mediastinal adenopathy and cardiomegaly. Differential diagnosis includes multifocal pneumonia, malignancy and CHF/pulmonary edema. Left rib fractures are identified of indeterminate age. Impression: Continued evidence for diffuse bilateral infiltrates, pleural effusions, mediastinal widening suggesting adenopathy and cardiomegaly. Findings may be very minimally improved when compared to prior examination. Signed by Garrett Miller MD 05/15/2017 02:01 P
[2017-05-15 14:14] LABS: ALBUMIN 2.4 GM/DL (3.2-5.2); ALBUMIN/GLOBULIN RATIO 0.75 (1.00-1.93); BILIRUBIN,DIRECT 0.4 MG/DL (0.0-0.2); BILIRUBIN,TOTAL 0.8 MG/DL (0.2-1.0); THYROXINE (T4) 6.5 UG/DL (4.5-12.0); TOTAL PROTEIN 5.6 GM/DL (6.4-8.2)
[2017-05-15] MEDS ORDERED: VANCOMYCIN HCL 1,000 MG, VIAL MATE ADAPTER 1 EACH in D5W 250 ML IV ONE (14:15)
[2017-05-15] MEDS ORDERED: PIPERACILLIN/TAZOBACTAM SOD 4.5 GM in D5W MINI-BAG PLUS 50 ML IV ONE (14:15)
[2017-05-15] MEDS ORDERED: ELIQ5TAB PO (14:45)
[2017-05-15] MEDS ORDERED: IPRASOL4 INH (14:45)
[2017-05-15] MEDS ORDERED: ZYLO300T4 PO (14:45)
[2017-05-15] MEDS ORDERED: NS 500 ML IV ONE (14:45)
[2017-05-15] MEDS ORDERED: ZOFR20TA PO (14:45)
[2017-05-15] MEDS ORDERED: AMLO5TAB2 PO (14:45)
[2017-05-15] MEDS ORDERED: PRED50TA PO (14:45)
[2017-05-15] MEDS ORDERED: BENZ100C5 PO (14:45)
[2017-05-15] MEDS ORDERED: OMEP20CA3 PO (14:45)
[2017-05-15] MEDS ORDERED: NS 1,000 ML IV ONE (14:45)
[2017-05-15] MEDS ORDERED: ALBU83IN INH (14:45)
[2017-05-15] MEDS ORDERED: METO1TAB87 PO (14:45)
[2017-05-15] MEDS ORDERED: BISACODYL 10 MG SUPP PR PRN (16:15)
[2017-05-15] MEDS ORDERED: FLEET ENEMA PR PRN (16:15)
[2017-05-15] MEDS ORDERED: IPRATROPIUM 0.5MG/ALBUTEROL 2.5MG INH SOL UD 3ML (DUONEB)(J7620) NEB PRN (16:15)
[2017-05-15] MEDS ORDERED: MORPHINE SULFATE ORAL SOLN 10 MG/5 ML UD SL PRN (16:15)
[2017-05-15] MEDS ORDERED: ACETAMINOPHEN TAB 650MG DOSE (2X325MG) PO PRN (16:15)
[2017-05-15] MEDS ORDERED: MORPHINE 2 MG/ML 1ML SYRINGE IV PRN (16:15)
[2017-05-15] MEDS ORDERED: SCOPOLAMINE 1.5 MG TRANSDERMAL TD PRN (16:15)
[2017-05-15] MEDS ORDERED: ATROPINE SULFATE 1% OP SOLN 2 ML BTL SL PRN (16:15)
[2017-05-15] MEDS ORDERED: ONDANSETRON 4MG/2ML VIAL (J2405) IV PRN (16:15)
[2017-05-15] MEDS: LORazepam 2 MG/ML VIAL (J2060) IV PRN ×2 (16:55→20:27)
[2017-05-15] MEDS ORDERED: FUROSEMIDE 40 MG/4 ML VIAL (J1940) IV ONE (17:00)
[2017-05-15 18:50] VITALS: BP 112/68
--- NOTE | 2017-05-15 19:37 | HPE ---
DATE OF ADMISSION: 05/15/2017 PRIMARY CARE PROVIDER: Dr. Mena DICE MANAGER: Dr. Hoang. ONCOLOGIST: Dr. Moriah Clark CHIEF COMPLAINT: Shortness of breath. 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 The patient was following up with Dr. Moriah Clark. Discharged on 06/11/2017, following up with Dr. Moriah Clark on and Tuesday for steroid therapy in preparation for chemotherapy next week, but over the course the patient's respirations continued to worsen. Dr. Moriah Clark had actually discussed with the family regarding palliative care given the patient's current respiratory status and advanced age and the patient most likely will not do well with chemotherapy. The patient's condition subsequently worsened over the weekend and he was brought to the hospital with significant cough, shortness of breath, and worsening lower extremity edema, and anasarca. The case was discussed with Dr. Moriah Clark, who provided two options. The first option was emergently transferring the patient to [facility] for further chemotherapy over the next 24 hours given that [facility] will not be able to offer chemotherapy within the next 24 hours and it will most likely take 72 hours to set up everything as inpatient. Another option was more of a palliative care option with comfort measures only. Subsequently, it was discussed with the family and the patient was made comfort measures only. The patient denies any chest pain, pressure or discomfort. Reported lower extremity swelling and coughing and shortness of breath. Denies any abdominal pain. Reported constipation, last bowel movement was about 3 days ago. ALLERGIES: ORANGE and ORANGE OIL. PAST MEDICAL HISTORY: 1. Tubulovillous adenoma. 2. Hypertension. 3. Atrial fibrillation on anticoagulation. 4. Chronic pain. 5. Obesity. 6. Recently diagnosed diffuse large B cell lymphoma. 7. Chronic obstructive pulmonary disease (COPD) with 4 liters oxygen at home. 8. Chronic hypoxic respiratory failure. 9. History of chronic pain. PAST SURGICAL HISTORY: 1. Right elbow surgery. 2. Cataract removal with lymph node biopsy. SOCIAL HISTORY: Quit smoking 38 years ago. Used to smoke two packs per day for 20 years. Denies drinking any alcohol or use of recreational drugs. FAMILY HISTORY: Father from cancer. Mother had cirrhosis of the liver and also had hypertension. REVIEW OF SYSTEMS: The patient reports shortness of breath, coughing and lower extremity swelling. Also reported poor oral intake. All other review of systems are negative. HOME MEDICATIONS: - albuterol inhalation every 2 hours as needed - DuoNeb nebulizer treatment every 4 hours as needed - allopurinol 300 mg by mouth daily - Norvasc 5 mg by mouth daily - Eliquis 5 mg by mouth twice a day - benzonatate 100 mg by mouth three times a day - metoprolol 75 mg by mouth three times a day - omeprazole 20 mg by mouth daily - Zofran 4 mg by mouth three times a day as needed - prednisone 50 mg by mouth daily PHYSICAL EXAMINATION : VITAL SIGNS: Temperature 97.8, pulse 120, respirations 30, blood pressure 113/62, pulse oximetry 93% on 45% Ventimask. GENERAL: The patient is in mild respiratory distress. Alert and oriented. PULMONARY: Bilateral rhonchi and expiratory wheeze. CARDIAC: Irregular, tachycardic. S1, S2. ABDOMEN: Soft, obese. Hypoactive bowel sounds. EXTREMITIES: 2+ bilateral lower extremity edema. LABORATORY DATA: WBC 19, hemoglobin and hematocrit 13.3/33, platelets 243. Chemistry: Sodium 145, potassium 4, chloride 107, bicarbonate 25, BUN 53, creatinine 1.05, lactic acid 6.9. Cardiac enzymes negative times one. BNP 47.1. X-ray shows diffuse bilateral infiltrate, pleural effusion, mediastinal widening suggestive of adenopathy. ASSESSMENT AND PLAN: This is a 72-year-old male patient with underlying medical history of diffuse large B cell lymphoma, lactic acidosis, atrial fibrillation, hypertension, chronic obstructive pulmonary disease (COPD), chronic hypoxic respiratory failure on 4 liters of oxygen, chronic pain, and also tubulovillous adenoma polyps on colonoscopy. The patient presented with shortness of breath and lower extremity swelling and cough. 1. Shortness of breath and cough. Likely secondary to the patient's lymphoma with possible component of pneumonia. The patient is currently made comfort measures only, would not like to pursue any additional treatment for underlying malignancy. Hospice has been consulted. Continue Lasix and nebulizer treatment. Morphine, Ativan, prednisone, scopolamine, and Atropine. Oxygen supplementation. The patient is currently comfort measures only. 2. Lower extremity swelling. Continue Lasix. The patient is currently comfort measures only. 3. Diffuse large B cell lymphoma. The patient does not want any further treatment, currently is comfort measures only. Case discussed with Dr. Moriah Clark. 4. Lactic acidosis. Likely secondary to dyspnea. The patient is currently comfort measures only. Continue with treatment as above. 5. Atrial fibrillation. Continue beta blockers. Withholding anticoagulation given the patient is currently comfort measures only. If the patient does not tolerate oral, we will discontinue beta blockers. 6. Chronic obstructive pulmonary disease (COPD). Nebulizer treatments, steroids, oxygen supplementation. 7. Chronic hypoxia. Continue oxygen supplementation. 8. Chronic pain. Continue pain medication as ordered. 9. Deep vein thrombosis (DVT) prophylaxis. The patient is currently comfort measures only. Sequential compression device. 10. Obesity, complicating care. DISPOSITION: Pending hospice consultation. The patient is currently comfort measures only. Advanced care planning. Time spent 40 minutes. Case was discussed with Dr. Moriah Clark, as well as family meeting. The patient is made comfort measures only pending hospice consultation. Continue medications as ordered.
--- NOTE | 2017-05-15 19:53 | ECGEPIP ---
Stationary ECG Study 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
[2017-05-15] MEDS: IPRATROPIUM 0.5MG/ALBUTEROL 2.5MG INH SOL UD 3ML (DUONEB)(J7620) NEB SCH (20:00)
[2017-05-15] MEDS: METOPROLOL TART 25 MG TABLET PO SCH (20:20)
[2017-05-15] MEDS ORDERED: LORazepam 2 MG/ML VIAL (J2060) IV ONE (21:45)
[2017-05-16] MEDS: LORazepam 2 MG/ML VIAL (J2060) IV PRN ×3 (00:02→07:44)
[2017-05-16] MEDS: IPRATROPIUM 0.5MG/ALBUTEROL 2.5MG INH SOL UD 3ML (DUONEB)(J7620) NEB SCH ×4 (02:00→19:05)
[2017-05-16] MEDS: METOPROLOL TART 25 MG TABLET PO SCH (09:00)
[2017-05-16] MEDS ORDERED: OMEPRAZOLE 20 MG CAP PO SCH (09:00)
[2017-05-16] MEDS ORDERED: predniSONE 50 MG TAB PO SCH (09:00)
[2017-05-16] MEDS: MORPHINE 2 MG/ML 1ML SYRINGE IV PRN ×4 (11:34→14:43)
--- NOTE | 2017-05-16 14:52 | IPN ---
DATE: 05/16/2017 Mr. Russell is not a useful historian, does not appear to be particularly uncomfortable, although he is somewhat tachypneic this morning. Family is at bedside. No recent vital signs for me to review. Breathing is symmetrical, tachypneic with a rate around 24. He does have some cough. No recent labs for me to review apart from last night's lactic acid of 10. My assessment is as follows: This is a 72-year-old with diffuse large B-cell lymphoma, not currently though to be a candidate for chemotherapy. Plan is as follows: The patient is pursuing comfort care. Recommend the use of morphine for tachypnea and possibly pain. Discussed this with family at bedside.
[2017-05-16] MEDS ORDERED: MORPHINE 2 MG/ML 1ML SYRINGE IV PRN ×2 (15:00→16:15)
[2017-05-16] MEDS ORDERED: MORPHINE SULF IN 0.9% NACL 100 MG in APPROPRIATE DILUENT 1 EA IV SCH ×2 (15:00)
[2017-05-16] MEDS ORDERED: EPIDURAL/PCA KEYS XX PRN (15:15)
--- NOTE | 2017-05-17 16:22 | DSES ---
DATE OF ADMISSION: 05/15/2017 DATE OF /DISCHARGE: 05/17/2017 DISCHARGE DIAGNOSES: 1. Diffuse large B-cell lymphoma. 2. Obstructive pneumonia. 3. Hypertension. 4. Atrial fibrillation. 5. Chronic pain. 6. Obesity. 7. Chronic obstructive pulmonary disease (COPD) with chronic hypoxic respiratory failure. 8. Acute on chronic hypoxic respiratory failure on presentation SUMMARY OF HIS HOSPITALIZATION: This is a 72-year-old who had been discharged the week previously with plans for outpatient chemotherapy. Unfortunately, it was thought that he would not sustain the chemotherapy. He was given steroids. He did not have improvement. He was brought to the hospital with shortness of breath. He was admitted to the hospitalist service. It was decided that the patient would be made COMFORT MEASURES ONLY. He was treated with antianxiety and pain medications. He was made comfortable. He had his family at bedside and eventually succumbed to his illness. [place]
== END 2017-05-17 01:30 | disposition expired | DRG 840 ==
LOC: EDBD 12:47 → M ED 12:47 → M ED INP 16:07 → M MSPAV 19:10
PROVIDERS: ADMIT Hospitalist; ATTEND Internal Medicine
DX: C83.32 Diffuse large B-cell lymphoma, intrathoracic lymph nodes (principal); J18.9 Pneumonia, unspecified organism; J96.21 Acute and chronic respiratory failure with hypoxia; J96.11 Chronic respiratory failure with hypoxia; E87.2 Acidosis; R60.1 Generalized edema; I10 Essential (primary) hypertension; E66.9 Obesity, unspecified; G89.29 Other chronic pain; J44.9 Chronic obstructive pulmonary disease, unspecified; Z51.5 Encounter for palliative care; Z79.01 Long term (current) use of anticoagulants; Z87.891 Personal history of nicotine dependence; Z79.899 Other long term (current) drug therapy; Z79.52 Long term (current) use of systemic steroids